=== PATIENT | female | born 1930 | race Caucasian/White ===

== ENCOUNTER 2018-07-07 19:05 | Inpatient (IN) ==
[2018-07-07 20:54] LABS: BASO# 0.02 X1000 (0.0-0.2); BASO% 0.2 % (0.0-0.8); EOS# 0.15 X1000 (0.0-0.7); EOS% 1.7 % (0.0-10.0); HEMATOCRIT 21.1 % (37.0-47.0); HEMOGLOBIN 6.7 g/dL (12.0-16.0); IMM GRAN# 0.04 X1000 (0.0-0.04); IMM GRAN% 0.4 % (0.0-0.5); LYMPH% 16.6 % (20.5-51.1); MCH 31.5 PG (27-31); MCHC 31.8 g/dL (33-37); MCV 99.1 FL (81-99); MONO# 1.07 X1000 (0.11-0.59); MONO% 11.9 % (1.7-9.3); MPV 10.6 FL (7.4-10.4); NEUT# 6.23 X1000 (1.4-6.5); NEUT% 69.2 % (42.2-75.2); PLT 204 X1000 (130-400); RBC 2.13 XMIL (4.2-5.4); RDW 14.6 % (11.5-14.5); WBC 9.01 X1000 (4.8-10.8)
[2018-07-07 21:01] LABS: INR 3.79
[2018-07-07 21:02] LABS: PTT 49.9 Seconds (22.3-41.8)
[2018-07-07] MEDS ORDERED: SODIUM CHLORIDE 0.9% INJ ONE (21:16)
[2018-07-07] MEDS ORDERED: PROTONIX IV ONE (21:16)
[2018-07-07 21:21] LABS: ALB/GLOB RATIO 1.3; ALBUMIN 3.1 g/dL (3.5-5.0); CALCIUM 9.7 mg/dL (8.8-10.2); CREATININE 2.3 mg/dL (0.5-0.9); POTASSIUM 3.9 mmol/L (3.5-5.1); TOTAL BILIRUBIN 0.31 mg/dL (0.20-1.00); TOTAL PROTEIN 5.5 g/dL (6.3-8.3)
[2018-07-07] MEDS ORDERED: LASIX IV ONE (23:19)
[2018-07-07] MEDS ORDERED: ZOFRAN IV PRN (23:23)
[2018-07-07] MEDS ORDERED: PROTONIX 80 MG in NS 80 ML IV ONE (23:23)
[2018-07-07] MEDS ORDERED: OFIRMEV 1000 MG/ISOTONIC SOLN 1,000 MG/100 ML BOTTLE IV ONE (23:37)
[2018-07-07] MEDS ORDERED: NS 250 ML ONE (23:46)
[2018-07-08] MEDS: DUONEB (A & A) INH SCH ×7 (01:08→23:35)
--- NOTE | 2018-07-08 01:47 | HISTORY AND PHYSICAL ---
PRIMARY CARE PHYSICIAN: Dr. Renner. CHIEF COMPLAINT: Dark blood in stools. HISTORY OF PRESENTING ILLNESS: An 87-year-old female with a history of coronary disease, [place], asthma, GERD, atrial flutter, breast cancer, who had presented to emergency department with several weeks of noticing blood in the stools. She states it was dark and somewhat tarry colored with some red blood tinged. She states that she was worried and had her Home Health nurse check her stools earlier today. There again it was noted that she had dark stools with some bright red blood that was around the stool. The patient was evaluated in the emergency department and she had a Hemoccult done that was positive and due to her presenting symptoms she will require admission for further management. At the time of my examination, patient had denied any headache, fever, chills, chest pain, shortness of breath, but complained of blood in stools and not feeling well. The patient is a poor historian and has some of the history is obtained from previous records and also the family members. PAST MEDICAL HISTORY: Coronary artery disease, SC, asthma, GERD, atrial flutter, breast cancer. PAST SURGICAL HISTORY: Pacemaker, right mastectomy, right knee replacement, mitral valve replacement, cholecystectomy, left ankle surgery, coronary bypass. ALLERGIES: Lortab. CURRENT MEDICATIONS: Lasix 40 mg p.o. daily, Coreg 6.25 mg p.o. b.i.d., L-thyroxine 125 mcg p.o. daily, omeprazole 20 mg p.o. daily, albuterol nebs p.r.n., Letrozole 2.5 mg p.o. daily, metolazone 10 mg p.o. daily, Cymbalta 60 mg p.o. daily, Multaq 400 mg p.o. b.i.d., Xarelto 15 mg p.o. daily. SOCIAL HISTORY: No history of smoking, alcohol or illicit drug use. She uses a walker for ambulation. FAMILY HISTORY: Positive for coronary disease in mother. REVIEW OF SYSTEMS: Fourteen point review of systems as listed in HPI. Other systems negative. PHYSICAL EXAMINATION: GENERAL: Cooperative, friendly female. She is resting comfortably now. VITAL SIGNS: Temperature 98.0 degrees, pulse 84, respirations 20, blood pressure 104/51. HEENT: Atraumatic, normocephalic. Extraocular movements intact. PERRLA. NECK: No masses. CHEST: Clear to auscultation. CARDIOVASCULAR: Irregular. ABDOMEN: Soft. Positive bowel sounds. EXTREMITIES: Trace edema. NEUROLOGIC: She is awake, alert, oriented x2. GENITOURINARY: No bladder distention. SKIN: Warm. LABORATORIES AND STUDIES: WBCs 9.01, hemoglobin 6.7, hematocrit 21.1, platelets 204,000. Sodium 140, potassium 3.9, chloride 99, CO2 22, BUN is 94, creatinine is 2.9, glucose is 126. ASSESSMENT: An 87-year-old elderly female with a history of coronary disease, myocardial infarction, atrial flutter, asthma, gastroesophageal reflux disease, who had presented to emergency department with several weeks history of noticing dark blood in her stools. She was evaluated in the emergency department and she had a Hemoccult done that was positive and due to presenting symptoms she will require admission for further management. 1. Suspected upper gastrointestinal bleed. 2. Atrial flutter, on anticoagulation. 3. Coronary artery disease. 4. Asthma. 5. Chronic kidney disease. PLAN: 1. We will admit patient to [facility]. 2. Keep patient NPO. Continue with Protonix drip and consult Gastroenterology. 3. We will hold her anticoagulation. 4. Continue with gentle hydration. 5. Continue with DuoNebs p.r.n. 6. Monitor her renal function. 7. We will put patient on DVT prophylaxis with SCDs. 8. We will continue to follow, and reassess and make further recommendation based on patient's clinical course. cc: Dante Tolliver MD
--- NOTE | 2018-07-08 06:27 | Diag Imaging Result Doc PS360 ---
CHEST-1 VIEW - 07/07/2018 INDICATION: sob COMPARISON: 03/24/2018 FINDINGS: Stable pacemaker and surgical changes to the heart. Cardiomegaly has improved since prior. There is some patchy linear atelectasis bilaterally. No dense consolidation or definite edema. No pneumothorax or pleural effusion. IMPRESSION: Cardiomegaly. Patchy linear atelectasis. Electronically signed by [place] 07/08/2018 6:25 AM
[2018-07-08 08:10] LABS: BASO# 0.02 X1000 (0.0-0.2); BASO% 0.2 % (0.0-0.8); EOS# 0.13 X1000 (0.0-0.7); EOS% 1.6 % (0.0-10.0); HEMATOCRIT 22.3 % (37.0-47.0); HEMOGLOBIN 7.2 g/dL (12.0-16.0); IMM GRAN# 0.02 X1000 (0.0-0.04); IMM GRAN% 0.2 % (0.0-0.5); LYMPH# 2.19 X1000 (1.2-3.4); LYMPH% 26.3 % (20.5-51.1); MCH 31.3 PG (27-31); MCHC 32.3 g/dL (33-37); MONO# 0.82 X1000 (0.11-0.59); MONO% 9.8 % (1.7-9.3); MPV 9.9 FL (7.4-10.4); NEUT# 5.16 X1000 (1.4-6.5); NEUT% 61.9 % (42.2-75.2); PLT 177 X1000 (130-400); RDW 14.5 % (11.5-14.5); WBC 8.34 X1000 (4.8-10.8)
[2018-07-08 08:17] LABS: CALCIUM 9.5 mg/dL (8.8-10.2); CREATININE 2.4 mg/dL (0.5-0.9); POTASSIUM 3.8 mmol/L (3.5-5.1)
[2018-07-08] MEDS ORDERED: SODIUM CHLORIDE 0.9% INJ SCH (10:15)
[2018-07-08] MEDS: PROTONIX IV SCH ×3 (10:23→23:02)
[2018-07-08] MEDS ORDERED: VITAMIN K 10 MG in NS 50 ML IV ONE (10:59)
[2018-07-08] MEDS ORDERED: NS 500 ML ONE (12:16)
[2018-07-08] MEDS ORDERED: SODIUM CHLORIDE 0.9% INJ PRN (13:47)
--- NOTE | 2018-07-08 13:55 | CARDIOLOGY CONSULTATION ---
DATE: 07/08/2018 REQUESTING PHYSICIAN: Hospitalist Service. REASON FOR CONSULTATION: Patient with coronary heart disease presenting with weakness, dyspnea, low hemoglobin, suspected to have GI bleeding. HISTORY: Mrs. Cardenas is an 84-year-old female who lives in independent living, was brought to the emergency room at about 10 p.m. last night because she was getting progressively tired, weak, not able to do much. She also noted some dark stools. Upon presentation, her hemoglobin was noted to be 6.7. They ordered 1 unit of blood, and after GI evaluation she is going to get a second unit of blood. She denies having any chest pain. She denies having any unusual dyspnea or syncope. No nausea or vomiting. PAST HISTORY: Positive for coronary heart disease. She has previously undergone coronary bypass surgery. She also has a history of sick sinus syndrome, heart block. She has asthma, acid reflux. She has had persistent atrial flutter, hypertension, hypothyroidism, and chronic kidney disease. She has a history of breast cancer. SURGICAL HISTORY: She had pacemaker implantation, right mastectomy, right knee replacement. She had mitral valve replacement redo in 2015 with a bioprosthetic valve for severe mitral regurgitation. Her bypasses were checked in 2014. Mammary artery graft to LAD was patent. Radial artery graft to diagonal was patent. Vein graft to marginal #1 was patent, and vein graft to right coronary artery was patent. Echocardiogram subsequently has been done more recently in the hospital on 03/23 that shows moderate to severe aortic stenosis with mild to moderate tricuspid regurgitation , normal function of the mitral valve. The patient has a history of also of basal cell carcinoma. SOCIAL HISTORY: She is . lives with her. She has children. She is not a smoker. MEDICATIONS: At the time of present admission include atorvastatin 10 mg at bedtime, calcium carbonate 1200 mg daily, carvedilol 6.25 twice a day, Multaq 400 twice a day, Cymbalta 60 mg in the morning, furosemide 40 mg a day, letrozole 2.5 in the morning, Synthroid 125 mcg daily, and Xarelto 15 mg at bedtime. ALLERGIES: She is allergic to hydrocodone. FAMILY HISTORY: Noncontributory. REVIEW OF SYSTEMS: She has become progressively more tired and weaker especially since her most recent admission in March of 2018. No other major changes in multiple review of systems. PHYSICAL EXAMINATION: Vital signs: Blood pressure 119/46, temperature 98.2, pulse 79, respirations 19. General: She is awake, alert, oriented, in no distress. HEENT: Unremarkable. She looks frail. Chest: Clear to auscultation and percussion. Cardiac: Heart sounds regular and rhythmic. Systolic murmur noted. Abdomen: Nontender, soft, no masses, no hepatomegaly. Extremities: Showed decreased pulses, no peripheral edema. Neurologic: Follows commands, moves four extremities. BLOOD WORK: Besides the hemoglobin, sodium is 143, potassium 3.8, BUN 100, creatinine 2.4, chloride 101, carbon dioxide 26. IMPRESSION: 1. Patient who presents with GI bleeding. This may be upper or lower. 2. Long-term anticoagulation with Xarelto. 3. Persistent atrial flutter. 4. Severe coronary heart disease, previous bypass surgery with patent grafts as of 2014. 5. Aortic stenosis, according to recent echo, of moderate to severe degree. 6. Status post mitral valve replacement with a bioprosthetic valve, redo valve surgery in 2016. No issue with this valve. 7. Chronic kidney disease, advanced, stage 4. RECOMMENDATION: From a cardiology viewpoint, I would suggest to put on hold the Xarelto probably indefinitely. We may have to think of a different way of preventing a stroke in her. I would suggest to give her some Vitamin K because her INR is elevated, also. I think they may proceed to do the endoscopies required in this case for definitive diagnosis with a reasonable risk for periprocedural cardiac events. We will be following her along. At this time, I am not going to change any of her medicines. cc: Luis Breaux MD [facility]
[2018-07-08] MEDS: CARAFATE LIQUID PO SCH ×2 (13:59→20:09)
--- NOTE | 2018-07-08 15:04 | PROGRESS NOTE ---
DATE: 07/08/2018 SUBJECTIVE: The patient has no new complaints at this moment. She is not complaining of chest pain or shortness of breath. She has mild abdominal discomfort. OBJECTIVE: Vital Signs: Temperature 98.6, pulse 77, respiratory rate 16, blood pressure 112/47, oxygen saturation 97% on 2 L nasal cannula. HEENT: Head normocephalic. No trauma. PERRLA. Neck: Supple. No JVD. No masses. Central trachea. Chest: Clear to auscultation. Decreased breath sounds at the bases with some crepitus. Cardiovascular: Irregularly irregular rate and rhythm. Abdomen: Soft. Positive bowel sounds. Mild tenderness to palpation at the level of the periumbilical area. Extremities: No edema. No clubbing. No cyanosis. Neurological: The patient is alert and oriented x3. No focal deficits. LABORATORY: WBC 8.3, hemoglobin 7.3, hematocrit 22.3, platelets 177,000. Sodium 143, potassium 3.8, chloride 101, bicarbonate 26, BUN 100, creatinine 2.4, glucose 100, calcium 9.5. ASSESSMENT AND PLAN: 1. Likely upper gastrointestinal bleed. This patient has been on anticoagulation which has been stopped. Will continue with Protonix. She will be scoped in the morning. For now, I will put this patient back on some of her home medications. I will monitor. Cardiology department has been consulted already. 2. Atrial flutter, on anticoagulation. Continue with same management. 3. Coronary artery disease. She is not complaining of chest pain or shortness of breath at this moment. I will put this patient back on carvedilol and Multaq. 4. Asthma, not in exacerbation. 5. Chronic kidney disease, stable. cc: Mir Degroot MD
--- NOTE | 2018-07-08 16:21 | GASTROENTEROLOGY CONSULTATION ---
DATE: 07/08/2018 REQUESTING PHYSICIAN: Dr. Howell PRIMARY CARE DOCTOR: Dr. Barb Renner in [place]. REASON FOR CONSULTATION: Dark stools. HISTORY OF PRESENT ILLNESS: Ms Cardenas is an 87-year-old female who presented on 07/07/2018 with symptoms of dark stools. According to the patient, the patient has been noticing dark stools for more than a week. She had asked her home health nurse to check her stools and, after confirming with her home health nurse, she was referred to ER for further evaluation. She had a positive Hemoccult in the ER. The patient denies any nausea, vomiting, vomiting blood. The patient says the stool is dark with some maroon old blood noted along at times. The patient has a history of pacemaker and atrial flutter, and she is on Xarelto. Her last Xarelto was yesterday at 5 p.m. Since being in the hospital, she had blood work which showed hemoglobin and hematocrit 6.7 and 21.1 and she has been given 1 unit of blood transfusion. PAST MEDICAL HISTORY: Coronary disease, [place], asthma, GERD, atrial flutter, breast cancer, insertion of pacemaker, right mastectomy, right knee replacement, mitral valve placement, cholecystectomy, right ankle surgery, coronary artery bypass. ALLERGIES: Lortab. MEDICATIONS AT HOME: Lasix, Coreg, levothyroxine, omeprazole, albuterol nebulizer, Letrozole, metolazone, Cymbalta, Multaq, Xarelto. SOCIAL HISTORY: No history of smoking, alcohol, illicit drugs. She uses a walker for ambulation. She has a very supportive son and at bedside. FAMILY HISTORY: Positive for coronary artery disease in mother. REVIEW OF SYSTEMS: Does complain of feeling weak and tired. Denies any nausea or vomiting. Denies any abdominal discomfort. Does have dark stool as described above. Does have history of arthritis. Denies any neurologic complaints. Denies any chest pain at the moment. MEDICATIONS IN THE HOSPITAL: albuterol/ipratropium, Zofran, Protonix b.i.d., vitamin K once now, and she is on a clear liquid diet. PHYSICAL EXAMINATION: Vital Signs: Temperature of 98.9 degrees, pulse rate of 73, respiratory rate 23, blood pressure 140/49, satting 94% on 2 L. General: Body weight of 164 pounds, BMI of 31 kg. She is moderately malnourished, lying in bed in no acute distress. HEENT: Pale conjunctivae. No icterus. Pupils equal, reactive to light. Neck: Supple. Abdomen: Soft, nontender, nondistended. No guarding or rebound. Extremities: No cyanosis, clubbing. Neurologic: She is alert, awake, oriented to time, place, and person. LABS: Hemoglobin and hematocrit is 7.2 and 22.3, white count of 8.3, platelet count of 177. INR 3.79. Sodium of 143, potassium 3.8, chloride 101, bicarbonate of 26, anion gap 16. BUN of 111, creatinine of 2.4, glucose of 109, calcium 9.5. AST 14, ALT 6, alkaline phosphatase 40, total protein is 5.5, albumin of 3.1. Stool occult blood was positive. IMAGING: X-ray of the chest done showed cardiomegaly and patchy linear atelectasis. IMPRESSION AND PLAN: 1. Melena. 2. Anemia. 3. Atrial flutter or anticoagulation with Xarelto. 4. Coagulopathy. 5. Coronary artery disease. 6. Asthma. 7. Chronic kidney disease. RECOMMENDATIONS: Will be given Protonix twice daily. We will start on Carafate 1 g 6 hours. She will be given 1 dose of vitamin K, which has already been given. Will type and cross, transfuse, keep hematocrit more than 25%. I have given order for 1 more unit of blood transfusion. We will keep her on clear liquid diet. We will schedule for EGD tomorrow with anesthesia. The risks, benefits, indications, alternatives were discussed with the patient and family and all questions answered. In the interim, her Xarelto will be withheld per the primary care team. The above plans discussed with the patient and family and all questions answered. Please call us with any further questions. cc: MD Dr. Barb Fontaine, [place], [place]
--- NOTE | 2018-07-08 19:31 | PROVIDER DOCUMENTATION ---
This chart was entered by Surendra Painter Scribe, acting as scribe for Sasha Cage MD. HPI-Abdominal Pain/GI Problem - General Chief Complaint: Rectal Bleeding Stated Complaint: RECTAL BLEEDING Time Seen by Provider: 07/07/18 20:05 Source: patient Allergies/Adverse Reactions: Patient Allergies Allergy/AdvReac Type Severity Reaction Status Date / Time hydrocodone [From Lortab] AdvReac NAUSEA Verified 03/18/18 13:13 Home Medications: Home Medication List Medication Instructions Recorded Confirmed Last Taken Type ATORVAstatin [Lipitor] 10 mg PO QHS 03/18/18 07/08/18 07/06/18 21:00 History Carvedilol [Coreg] 6.25 mg PO BID 03/18/18 07/08/18 07/07/18 09:00 History Letrozole 2.5 mg PO QAM 03/18/18 07/08/18 07/07/18 09:00 History Rivaroxaban [Xarelto] 15 mg PO QHS 03/18/18 07/08/18 07/06/18 21:00 History Calcium Carbonate [Calcium] 1,200 mg PO DAILY 03/20/18 07/08/18 07/07/18 09:00 History Dronedarone HCl [Multaq] 400 mg PO BID 03/20/18 07/08/18 07/07/18 09:00 History Duloxetine HCl 60 mg PO QAM #30 capsule. 03/26/18 07/08/18 07/07/18 09:00 Rx Furosemide [Lasix] 40 mg PO DAILY #90 tab 03/26/18 07/08/18 07/07/18 09:00 Rx Levothyroxine [Synthroid] 125 microgm PO DAILY@0700 #60 tab 03/26/18 07/08/18 09:00 Rx - History of Present Illness-ABD Nature of Presenting Problems: Pt is a 87 y/o F presents to the ED with a possible Lower GI bleed. Pt reports she lives in the [place] with a COMBINATION WORKER came by there and did a stool sample. The son got a call around 5:30 pm saying to take pt to the ED for evaluation for possible GI bleed. Pt reports being weak and says she has notice some black stool. She denies abdominal pain. Quality of Pain: reports: none Onset/Duration: reports: unsure Timing: reports: still present Activities at Onset: reports: none Exposure to sick contacts?: No Modifying Factors: improves with: nothing Associated Symptoms: reports: weakness. denies: back/neck pain, fever/chills, genitourinary problems, nausea, vomiting, trouble walking Dark Stools Present?: reports: black Review of Systems - Adult - REVIEW OF SYSTEMS - ADULT Constitutional: reports: other (weakness). denies: chills, fever Eyes: reports: no symptoms reported Ears, Nose, Mouth & Throat: reports: no symptoms reported Cardiovascular: reports: no symptoms reported Respiratory: denies: cough, shortness of breath, wheezing Gastrointestinal: denies: abdominal pain, nausea, rectal bleeding (black stool) , vomiting Genitourinary: denies: dysuria, discharge Musculoskeletal: denies: back pain, neck pain Integumentary: reports: no symptoms reported Neurological: reports: no symptoms reported Psychiatric: reports: no symptoms reported Endocrine: reports: no symptoms reported Hematologic/Lymphatic: reports: no symptoms reported Allergic/Immunologic: reports: no symptoms reported All Other Systems: Reviewed and Negative Past History - Adult - PAST MEDICAL HISTORY-ADULT Review of Records: reports: Old Records Reviewed, Nursing Assessment Review, Medications Reviewed Cardiovascular: reports: CAD, pacemaker Endocrine/Immune: reports: Diabetes Other Conditions: 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 - PRIOR SURGERIES/PROCEDURES Surgical/Procedure History: reports: reviewed, not pertinent - IMMUNIZATION STATUS Childhood Immunizations: See Nurse Assessment Flu Vaccine: See Nurse Assessment - FAMILY HISTORY Family History: reviewed, not pertinent - SOCIAL HISTORY Smoking: non-smoker Living Situation: family Physical Exam-General - PHYSICAL EXAM-ADULT Initial Vital Signs Reviewed: Yes - CONSTITUTIONAL General Appearance: appears well, alert, no apparent distress - EYES Eyes: PERRL/EOMI, pink conjunctivae - HEAD, EARS, NOSE, MOUTH & THROAT HENMT: moist mucous membranes, normal ENT inspection, TMs normal, pharynx normal - NECK Neck: non-tender, full range of motion, supple, normal inspection - RESPIRATORY Respiratory: lungs clear, normal breath sounds, no pleuratic chest pain, no respiratory distress, no accessory muscle use - CARDIOVASCULAR Cardiovascular: normal peripheral pulses, regular rate, rhythm - GASTROINTESTINAL (ABDOMEN) Abdominal Exam: normal bowel sounds, non tender, soft - GENITOURINARY Rectal Exam: normal exam, normal rectal tone, black stool - MUSCULOSKELETAL Back Exam: normal inspection, no CVA tenderness, no vertebral tenderness Extremity: normal range of motion, non-tender, normal gait, normal inspection - SKIN Integumentary: normal color, normal turgor, warm/dry - NEUROLOGIC Neurologic: grossly normal, no motor/sensory deficits - PSYCHIATRIC Psych/Mental Status: normal mood/affect, normal thought content, normal thought process, oriented x 3 Progress - PLAN OF CARE/RESULTS Progress/Plan/Lab Results: Vital Signs - 8 hr 07/07/18 19:33 Temperature 98.0 F Pulse Rate 84 Respiratory Rate 20 Blood Pressure 104/51 O2 Sat by Pulse Oximetry 97 Orders Category Date Time Status CBC WITH ELECTRONIC DIFF [HEME] Stat Lab 07/07/18 19:36 Uncollected COMPREHENSIVE METABOLIC PANEL [CHEM] Stat Lab 07/07/18 19:36 Uncollected PROTIME WITH INR [COAG] Stat Lab 07/07/18 19:36 Uncollected PTT [COAG] Stat Lab 07/07/18 19:36 Uncollected TYPE & SCREEN [BBK] Stat Lab 07/07/18 19:36 Uncollected GI Bleed (possible) Stat Oth 07/07/18 19:36 Ordered Result Diagrams: 07/08/18 07:44 07/08/18 07:44 - CONSULTS/PCP/HOSPITALIST Notification #1 *Consult/PCP/Hospitalist*: Hospitalist- Dr Tolliver Time Discussed: 21:16 Reason/Comments: admission Consult Disposition: Will see in ED, Admit (accepts) Departure - Departure Date of Disposition Decision: 07/07/18 Time of Disposition Decision: 21:17 DIAGNOSIS: GI bleed Disposition: ADMITTED INPATIENT 09 Certified Medical Emergency: Emergent Condition: Stable - Critical Care Note This patient required my direct & personal management of CC.: No Attestation - Physician/ LACIE Attestation Patient care was provided by Advanced Practice Provider:: No The physician spent face to face time with patient:: Yes Advanced Practice Provider documentation review:: Supervising physician onsite and consulted in the evaluation and care of this patient. The physician did have a face to face encounter with the patient. This chart was documented by the jerardo scribe, (Surendra Painter Scribe) and accurately reflects the services I performed and decisions made by me, Niles,Sasha Huu, MD, as attested by the provider's signature.
[2018-07-08] MEDS: COREG PO SCH (20:09)
[2018-07-08] MEDS: MULTAQ PO SCH (20:09)
[2018-07-09] MEDS ORDERED: TYLENOL WITH CODEINE #3 PO ONE (01:45)
[2018-07-09] MEDS: CARAFATE LIQUID PO SCH ×4 (02:01→20:53)
[2018-07-09] MEDS: DUONEB (A & A) INH SCH ×6 (03:25→23:35)
[2018-07-09 05:53] LABS: PTT 32.5 Seconds (22.3-41.8)
[2018-07-09] MEDS: SYNTHROID IV SCH (05:59)
[2018-07-09 06:03] LABS: BASO# 0.01 X1000 (0.0-0.2); BASO% 0.1 % (0.0-0.8); EOS# 0.24 X1000 (0.0-0.7); EOS% 2.6 % (0.0-10.0); HEMATOCRIT 26.1 % (37.0-47.0); HEMOGLOBIN 8.5 g/dL (12.0-16.0); IMM GRAN# 0.02 X1000 (0.0-0.04); IMM GRAN% 0.2 % (0.0-0.5); INR 1.63; LYMPH# 1.74 X1000 (1.2-3.4); LYMPH% 18.6 % (20.5-51.1); MCHC 32.6 g/dL (33-37); MCV 95.3 FL (81-99); MONO# 1.19 X1000 (0.11-0.59); MONO% 12.7 % (1.7-9.3); MPV 10.3 FL (7.4-10.4); NEUT# 6.18 X1000 (1.4-6.5); NEUT% 65.8 % (42.2-75.2); PLT 180 X1000 (130-400); PROTIME 20.5 Seconds (11.0-16.0); RBC 2.74 XMIL (4.2-5.4); RDW 16.2 % (11.5-14.5); WBC 9.38 X1000 (4.8-10.8)
[2018-07-09] MEDS ORDERED: DIPRIVAN 1% ONE ×2 (06:44→11:18)
[2018-07-09] MEDS ORDERED: XYLOCAINE-MPF 2% ONE (06:45)
[2018-07-09 06:59] LABS: ALB/GLOB RATIO 1.2; ALBUMIN 3.1 g/dL (3.5-5.0); CALCIUM 9.4 mg/dL (8.8-10.2); POTASSIUM 3.8 mmol/L (3.5-5.1); TOTAL BILIRUBIN 0.45 mg/dL (0.20-1.00); TOTAL PROTEIN 5.6 g/dL (6.3-8.3)
[2018-07-09] MEDS: MULTAQ PO SCH ×2 (09:08→20:53)
[2018-07-09] MEDS: PROTONIX IV SCH ×3 (09:08→20:53)
[2018-07-09] MEDS: COREG PO SCH ×2 (09:08→20:53)
--- NOTE | 2018-07-09 11:06 | PROGRESS NOTE ---
DATE: 07/09/2018 SUBJECTIVE: This patient has no new complaints at this moment. She is scheduled for an endoscopy today. No acute events overnight. OBJECTIVE: Vital Signs: Temperature 97.3 degrees, pulse 78, respiratory rate 18, blood pressure 114/50, oxygen saturation 95% on room air. HEENT: Head normocephalic. No trauma. PERRLA. Neck: Supple. No JVD. No masses. Central trachea. Chest: Clear to auscultation. Decreased breath sounds at the bases with some crepitus. Cardiovascular: Irregular rhythm. Abdomen: Soft. Positive bowel sounds. Mild tenderness to palpation at the level of the periumbilical area. Extremities: No edema. No clubbing. No cyanosis. Neurological examination: The patient is alert and oriented x3. No focal deficits. LABORATORY: WBC 9.3, hemoglobin 8.5, hematocrit 26.1, platelets 180. Sodium 143, potassium 3.8, chloride 102, bicarbonate 24. BUN 93, creatinine 2, glucose 98, calcium 9.4. AST 17, ALT 6, alkaline phosphatase 40, albumin 3.1. ASSESSMENT AND PLAN: 1. Likely upper gastrointestinal bleed. This patient has been on anticoagulation which has been stopped. We will continue with Protonix. She will be scoped today. For now, we will continue with the same management. 2. Atrial flutter, on anticoagulation that has been stopped. Continue with the same management. Cardiology Department already evaluated this patient. 3. Coronary artery disease. She is not complaining of chest pain or shortness of breath at this moment. She has been placed back on her medications. 4. Asthma not in exacerbation. 5. Chronic kidney disease, stable. cc: Mir Degroot MD
--- NOTE | 2018-07-09 12:31 | OPERATIVE NOTE ---
PROCEDURE DATE: 07/09/2018 PROCEDURE: Esophagogastroduodenoscopy PREOPERATIVE DIAGNOSIS: Melena and anemia. POSTOPERATIVE DIAGNOSIS: Moderate sized hiatal hernia. No signs of any bleeding. DESCRIPTION OF PROCEDURE: After informed consent and adequate intravenous sedation, the scope introduced through the esophagus which was normal. The patient had 4 to 5 cm hiatal hernia. However I did not see any Meera-Moya tear or any active bleeding. The rest of the stomach and duodenum were normal. No AVMs seen. The scope was withdrawn. The patient tolerated the procedure well without any immediate complications. While hiatal hernias of this size are associated with chronic anemia, I will check with the patient and see when she had the colonoscopy. We may need to do that if she has not had one recently. cc: Julio Eubanks MD
[2018-07-09 15:38] LABS: HEMATOCRIT 26.7 % (37.0-47.0); HEMOGLOBIN 8.4 g/dL (12.0-16.0)
[2018-07-09 21:18] LABS: HEMATOCRIT 26.9 % (37.0-47.0); HEMOGLOBIN 8.4 g/dL (12.0-16.0)
[2018-07-09] MEDS ORDERED: CALMOSEPTINE OINTMENT TOP PRN (22:02)
[2018-07-10] MEDS: CARAFATE LIQUID PO SCH ×2 (02:28→08:21)
[2018-07-10] MEDS: DUONEB (A & A) INH SCH ×2 (03:35→08:14)
[2018-07-10 05:02] LABS: BASO# 0.01 X1000 (0.0-0.2); BASO% 0.1 % (0.0-0.8); EOS# 0.43 X1000 (0.0-0.7); EOS% 5.4 % (0.0-10.0); HEMATOCRIT 26.7 % (37.0-47.0); HEMOGLOBIN 8.3 g/dL (12.0-16.0); LYMPH# 1.35 X1000 (1.2-3.4); LYMPH% 16.9 % (20.5-51.1); MCH 30.6 PG (27-31); MCHC 31.1 g/dL (33-37); MCV 98.5 FL (81-99); MONO# 1.03 X1000 (0.11-0.59); MONO% 12.9 % (1.7-9.3); MPV 10.4 FL (7.4-10.4); NEUT# 5.19 X1000 (1.4-6.5); NEUT% 64.7 % (42.2-75.2); PLT 176 X1000 (130-400); RBC 2.71 XMIL (4.2-5.4); RDW 16.3 % (11.5-14.5); WBC 8.01 X1000 (4.8-10.8)
[2018-07-10 05:44] LABS: CALCIUM 9.3 mg/dL (8.8-10.2); CREATININE 1.9 mg/dL (0.5-0.9); POTASSIUM 3.6 mmol/L (3.5-5.1)
[2018-07-10] MEDS: SYNTHROID IV SCH (06:01)
[2018-07-10 07:10] VITALS: BP 104/48
[2018-07-10] MEDS: COREG PO SCH (08:21)
[2018-07-10] MEDS: MULTAQ PO SCH (08:21)
[2018-07-10] MEDS: PROTONIX IV SCH (08:21)
--- NOTE | 2018-07-11 06:30 | DISCHARGE SUMMARY ---
ADMISSION DATE: 07/07/2018 DISCHARGE DATE: 07/10/2018 DISCHARGE DIAGNOSES: 1. Upper GI bleed status post upper endoscopy. 2. Atrial flutter on anticoagulation that has been stopped. 3. History of coronary artery disease. 4. Asthma not in exacerbation. 5. CKD. CONSULTANTS: 1. Cardiology Department Dr. Breaux. 2. Gastroenterology Department Dr. Eubanks. PROCEDURES PERFORMED: 1. Chest x-ray dated 07/07/2018 showed cardiomegaly and patchy linear atelectasis. 2. EGD dated 07/09/2018. Diagnosis: Moderate sized hiatal hernia. No signs of any bleeding. HOSPITAL COURSE: An 87-year-old female with a past medical history of coronary artery disease, HI, asthma, GERD, atrial flutter, breast cancer who presented to the emergency department with the chief complaint of dark tarry colored stools. She was admitted on 07/07/2018. As per the patient, she spent several weeks noticing blood in the stools. She states that it was dark and somewhat tarry colored with some red blood tinged. She states that she was worried, and her home health nurse check her stools earlier the day of admission. The patient was evaluated in the emergency department. She had a Hemoccult that was positive. Because of the presenting symptoms, she was admitted for further management. At that time, she denied headache, fever, chills, chest pain, or shortness of breath. She is actually a poor historian and has some of the story has been obtained from previous records and also family members. She was admitted to the [facility] unit. We stopped the anticoagulation, and we asked cardiology department to evaluate this patient who suggested to put on hold the Xarelto probably indefinitely. We may have to think of a different way of preventing a stroke in her. Also, they gave her some vitamin K because the INR was a little bit elevated. They did not change the rest of her medications. Gastroenterology Department was consulted, and they decided to go ahead and scope this patient. The ED did not show any active bleeding, but showed a moderate sized hiatal hernia. We monitored the hemoglobin, and has been stable for the past couple of days. At the beginning though, the hemoglobin was low at 6.7 and she received 2 units of PRBC's. Today, this patient is feeling fine. She is tolerating p.o. She is ambulating. She is not having nausea or vomiting. Hemoglobin is stable. This is why we have decided to discharge this patient with an active follow up by Gastroenterology Department in 1 to 2 months because this patient probably needs to get a colonoscopy. Also, she will follow up with Dr. Breaux hopefully in 1 or 2 weeks to take care of the anticoagulation and/or another way to try to prevent strokes. She will not be discharged with blood thinners seen she has been having black stools/melena. I also recommended followup by her primary care doctor in 1 week. PHYSICAL EXAMINATION: Vital Signs: Temperature 98.5 degrees, pulse 56, respiratory rate 14, blood pressure 104/48, oxygen saturation 94. HEENT: Head normocephalic. No trauma. PERRLA. Neck: Supple. No JVD. No masses. Central trachea. Chest: Clear to auscultation. No wheezing. No rales. Abdomen: Soft, nontender, and nondistended. No hepatosplenomegaly. Extremities: No edema. No clubbing. No cyanosis. She is complaining of left foot pain which is chronic and has been seen by Orthopedic Surgery Department as an outpatient. I do not see any source of infection. LABORATORY: WBC 8. Hemoglobin 8.3, hematocrit 26.7 and platelets 176,000. Sodium 141, potassium 3.6, chloride 100, bicarbonate 24, BUN 74, creatinine 1.9 and glucose 97, and calcium 9.3. DISCHARGE MEDICATIONS: 1. Synthroid 125 mcg p.o. daily. 2. Letrozole 2.5 mg p.o. every morning. 3. Furosemide 40 mg p.o. daily. 4. Fluoxetine 60 mg p.o. every morning. 5. Multaq 400 mg p.o. b.i.d. 6. Carvedilol 6.25 mg p.o. b.i.d. 7. Calcium carbonate 1200 mg p.o. daily. 8. Atorvastatin 10 mg p.o. at bedtime. 9. Pantoprazole 40 mg p.o. daily. TIME SPENT: Time discharging this patient 35 minutes. cc: Mir Degroot MD
== END 2018-07-10 11:50 | disposition home or self-care (01) | DRG 813 ==
LOC: ED 19:05 → EDIPHOLD 23:08 → SUATTDRO 23:08 → 3S 07-08 11:02
PROVIDERS: ATTEND Internal Medicine
CPT/HCPCS: 36430; 71010; 71045; 80048; 80053; 82270; 82550; 83880; 84484; 85014; 85018; 85025; 85610; 85730; 86850; 86900; 86901; 86920; 94640; 94761; 96365; 96375; 96376; 99285; A9270; C9113; J0131; J1940; J3430; J7040; J7050; P9016; S0164

== ENCOUNTER 2018-07-25 07:32 | Inpatient (IN) ==
--- NOTE | 2018-07-25 07:37 | PROVIDER DOCUMENTATION ---
[id number] - General Chief Complaint: Fall Stated Complaint: fall Time Seen by Provider: 07/25/18 07:36 Source: patient, EMS, EMS notes reviewed Allergies/Adverse Reactions: Patient Allergies Allergy/AdvReac Type Severity Reaction Status Date / Time hydrocodone [From Lortab] AdvReac NAUSEA Verified 07/25/18 09:15 Home Medications: Home Medication List Medication Instructions Recorded Confirmed Last Taken Type ATORVAstatin [Lipitor] 10 mg PO QHS 03/18/18 07/25/18 07/24/18 History Carvedilol [Coreg] 6.25 mg PO BID 03/18/18 07/25/18 07/24/18 History Letrozole 2.5 mg PO QAM 03/18/18 07/25/18 07/24/18 History Calcium Carbonate [Calcium] 1,200 mg PO DAILY 03/20/18 07/25/18 07/24/18 History Duloxetine HCl 60 mg PO QAM #30 capsule. 03/26/18 07/25/18 07/24/18 Rx Furosemide [Lasix] 40 mg PO DAILY #90 tab 03/26/18 07/25/18 07/24/18 Rx Levothyroxine [Synthroid] 125 microgm PO DAILY@0700 #60 tab 03/26/18 07/25/18 Rx Pantoprazole [Protonix] 40 mg PO DAILY@0700 #60 tab 07/10/18 07/25/18 07/24/18 Rx Amiodarone [Cordarone] 1 tab PO DAILY 07/22/18 07/25/18 07/24/18 History Aspirin [Aspir-Low] 1 tab PO DAILY 07/22/18 07/25/18 07/24/18 History Ranolazine [Ranexa] 1 tab PO BID 07/22/18 07/25/18 07/24/18 History - History of Present Illness -Trauma Nature of Presenting Problem: Patient with 3rd visit this week for falls and weakness, had an admission here end of June for GI bleed, and an admission at week and a half ago for NSTEMI. Patient also has history of CHF. Today, she got up to go to the bathroom, fell back feldman and hit head in the same are she had a lac repair on , causing slight dehiscence of scalp wound. States she is still having left arm paresthesias, similar to when she had her WI. No new symptoms. No LOC today. No fever, chills, n/v, sob. Location of Pain/Injury: reports: head Head Injury Location: reports: occipital Pain Radiation: reports: no radiation Quality of Pain: reports: dull Severity: reports: mild Onset/Duration: reports: 1 hour ago Timing: reports: still present, constant Method of Injury: reports: fall Loss of Consciousness: no loss of consciousness Remembers:: reports: injury Modifying Factors: improves with: nothing. worse with: palpation Injury Associated Symptoms: reports: weakness, trouble walking Locality of [place]: Home Similar Symptoms Previously?: Yes (3rd visit this week to ED for same) Recently seen or treated by another doctor?: Yes (as above in HPI) Review of Systems - Adult - REVIEW OF SYSTEMS - ADULT Constitutional: reports: no symptoms reported Eyes: reports: no symptoms reported Ears, Nose, Mouth & Throat: reports: no symptoms reported Cardiovascular: reports: see HPI, chest pain, edema, syncope. denies: heart murmur, irregular heart rate, orthopnea, palpitations, poor circulation, PND Respiratory: reports: see HPI, dyspnea on exertion, shortness of breath Gastrointestinal: reports: no symptoms reported Genitourinary: reports: no symptoms reported Musculoskeletal: reports: no symptoms reported Integumentary: reports: no symptoms reported Neurological: reports: no symptoms reported Psychiatric: reports: no symptoms reported Endocrine: reports: no symptoms reported Hematologic/Lymphatic: reports: no symptoms reported Allergic/Immunologic: reports: no symptoms reported All Other Systems: Reviewed and Negative Past History - Adult - PAST MEDICAL HISTORY-ADULT Review of Records: reports: Old Records Reviewed (3 ED visits, and hospital admission, labs/EKGs), Nursing Assessment Review, Medications Reviewed, Social history reviewed & non-contributory. Major Childhood Illnesses: reports: denies history Cardiovascular: reports: A-Fib, CAD, CHF, HTN, pacemaker Respiratory: reports: asthma Gastrointestinal: reports: denies history Obstetrical/Gynecological: reports: denies history Genitourinary: reports: kidney disease Musculoskeletal: reports: denies history Neurological: reports: denies history Endocrine/Immune: reports: Diabetes, thyroid disorder Other Conditions: 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 - PRIOR SURGERIES/PROCEDURES Surgical/Procedure History: reports: reviewed, not pertinent, pacemaker, joint replacement - IMMUNIZATION STATUS Childhood Immunizations: See Nurse Assessment Flu Vaccine: See Nurse Assessment - FAMILY HISTORY Family History: reviewed, not pertinent - SOCIAL HISTORY Smoking: non-smoker Substance Use: none/never Alcohol Use Frequency: never Living Situation: family Physical Exam-Injury Related - Physical Exam-Injury Related Initial Vital Signs Reviewed: Yes (hypotensive initially, otherwise stable) General Appearance: appears well, alert, no apparent distress, obese Immobilization?: negative: backboard, C-collar Eyes: PERRL/EOMI, pink conjunctivae Head, Ears, Nose, Mouth & Throat: moist mucous membranes, normal ENT inspection , pharynx normal, other (hematoma right occiptal region, with recently stapled laceration and small area of dehiscence with minimal clotted blood) Progress - PLAN OF CARE/RESULTS Progress/Plan/Lab Results: Vital Signs - 8 hr 07/25/18 07:37 07/25/18 07:55 07/25/18 07:56 Temperature 98.3 F Pulse Rate 83 71 47 L Respiratory Rate 18 23 23 Blood Pressure 84/65 124/56 O2 Sat by Pulse Oximetry 97 07/25/18 08:00 07/25/18 08:29 07/25/18 08:30 Temperature Pulse Rate 70 70 Respiratory Rate 28 H 24 18 Blood Pressure O2 Sat by Pulse Oximetry 07/25/18 08:40 07/25/18 08:50 07/25/18 09:00 Temperature Pulse Rate 76 68 73 Respiratory Rate 22 18 24 Blood Pressure O2 Sat by Pulse Oximetry 07/25/18 09:10 07/25/18 09:12 Temperature Pulse Rate 70 70 Respiratory Rate 18 24 Blood Pressure 134/46 O2 Sat by Pulse Oximetry 07/25/18 08:30 Influenza Screen - Final Nasopharyngeal Laboratory Results - last 24 hr 07/25/18 07/25/18 07/25/18 08:00 08:00 08:00 WBC 9.31 RBC 3.03 L Hgb 9.3 L Hct 30.5 L MCV 100.7 H MCH 30.7 MCHC 30.5 L RDW Std Deviation 16.1 H Plt Count 243 MPV 9.6 Immature Gran % (Auto) 0.2 Neut % (Auto) 74.7 Lymph % (Auto) 13.3 L [place] % (Auto) 9.7 H Eos % (Auto) 2.0 Baso % (Auto) 0.1 Immature Gran # (Auto) 0.02 Neut # (Auto) 6.95 H Lymph # (Auto) 1.24 [place] # (Auto) 0.90 H Eos # (Auto) 0.19 Baso # (Auto) 0.01 PT INR PTT (Actin FS) Sodium 139 Potassium 4.6 Chloride 98 Carbon Dioxide 28 Anion Gap 13 BUN 60 H Creatinine 2.5 H Estimated GFR/1.73 m2 18 BUN/Creatinine Ratio 24 Glucose 107 H Calculated Osmolality 295 Calcium 10.2 Phosphorus 4.9 H Magnesium 2.0 Total Bilirubin 0.48 AST 16 ALT 14 Alkaline Phosphatase 78 Creatine Kinase 29 Troponin T [id number]-B-Tsfyvrycbkx Pept 04922 H Total Protein 5.9 L Albumin 3.6 Globulin 2.3 Albumin/Globulin Ratio 1.6 Plasma Lactate Urine Source 07/25/18 07/25/18 07/25/18 08:00 08:00 08:35 WBC RBC Hgb Hct MCV MCH MCHC RDW Std Deviation Plt Count MPV Immature Gran % (Auto) Neut % (Auto) Lymph % (Auto) [place] % (Auto) Eos % (Auto) Baso % (Auto) Immature Gran # (Auto) Neut # (Auto) Lymph # (Auto) [place] # (Auto) Eos # (Auto) Baso # (Auto) PT 18.5 H D INR 1.43 D PTT (Actin FS) 35.0 Sodium Potassium Chloride Carbon Dioxide Anion Gap BUN Creatinine Estimated GFR/1.73 m2 BUN/Creatinine Ratio Glucose Calculated Osmolality Calcium Phosphorus Magnesium Total Bilirubin AST ALT Alkaline Phosphatase Creatine Kinase Troponin T 0.791 H* Uge-O-Meoaqgoumha Pept Total Protein Albumin Globulin Albumin/Globulin Ratio Plasma Lactate 1.7 Urine Source 07/25/18 09:06 WBC RBC Hgb Hct MCV MCH MCHC RDW Std Deviation Plt Count MPV Immature Gran % (Auto) Neut % (Auto) Lymph % (Auto) [place] % (Auto) Eos % (Auto) Baso % (Auto) Immature Gran # (Auto) Neut # (Auto) Lymph # (Auto) [place] # (Auto) Eos # (Auto) Baso # (Auto) PT INR PTT (Actin FS) Sodium Potassium Chloride Carbon Dioxide Anion Gap BUN Creatinine Estimated GFR/1.73 m2 BUN/Creatinine Ratio Glucose Calculated Osmolality Calcium Phosphorus Magnesium Total Bilirubin AST ALT Alkaline Phosphatase Creatine Kinase Troponin T Dtj-H-Snixzxoljbi Pept Total Protein Albumin Globulin Albumin/Globulin Ratio Plasma Lactate Urine Source CLEAN CATCH Orders Category Date Time Status Finger Stick Blood Sugar (ED) DIRECTED Care 07/25/18 07:55 Active Vargas Cath Insertion ORDERED Care 07/25/18 09:17 Active Nursing- Obtain EKG once Care 07/25/18 07:55 Active Saline Loc NOW Care 07/25/18 07:55 Active Wound Care DIRECTED Care 07/25/18 07:57 Active CHEST-PORTABLE [RAD] Stat Exams 07/25/18 07:[address] HEAD/C-SPINE W/O CONTRAST [CT] Stat Exams 07/25/18 07:56 Completed CBC WITH ELECTRONIC DIFF [HEME] Stat Lab 07/25/18 08:00 Completed CK PROFILE [SP CHEM] Stat Lab 07/25/18 08:00 Completed COMPREHENSIVE METABOLIC PANEL [CHEM] Stat Lab 07/25/18 08:00 Completed INFLUENZA SCREEN A/B Stat Lab 07/25/18 08:30 Received LACTATE, PLASMA [CHEM] Stat Lab 07/25/18 08:35 Completed MAGNESIUM [CHEM] Stat Lab 07/25/18 08:00 Completed PRO B-NATRIURETIC PEPTIDE Stat Lab 07/25/18 08:00 Completed PROTIME WITH INR [COAG] Stat Lab 07/25/18 08:00 Completed PTT [COAG] Stat Lab 07/25/18 08:00 Completed TROPONIN T Stat Lab 07/25/18 08:00 Completed URINALYSIS W/POSS RFLX CULT [URINALYSIS] Stat Lab 07/25/18 09:06 Results phos [PHOSPHORUS] [CHEM] Stat Lab 07/25/18 08:00 Completed 0.9% Sodium Chloride Inj [Ns] 500 ml Med 07/25/18 07:56 Discontinued IV 999 mls/hr Acetaminophen [Tylenol] Med 07/25/18 07:57 Discontinued 650 mg PO NOW ONE Aspirin Med 07/25/18 09:30 Discontinued 325 mg PO NOW ONE Furosemide [Lasix] Med 07/25/18 09:16 Discontinued 60 mg IV NOW ONE Nitroglycerin Med 07/25/18 09:16 Discontinued 0.5 inch TOP NOW ONE EKG [EKG] Stat Ther 07/25/18 07:55 Ordered Result Diagrams: 07/25/18 08:00 07/25/18 08:00 - REASSESSMENT Reassessment #1 Time Reassessed: 09:43 Status: improving (BP improved after small fluid bolus. Given tylenol for pain , wound cleaned and dressed. Given ASA, NTP and Lasix for chf) - EKG 1 Time of EKG reading by physician:: 09:00 EKG Read and Signed by:: Musa Tlelo EKG Interpretation (*Must complete 3 of following elements*): Abnormal Rate: 69 Rhythm: Atrial paced rhythm [place]: right QRS: other (wide complex, paced) MI Interval: normal ST Wave: non-specific ST changes Prior EKG Comparison: unchanged from prior (07/22/18) - XRAY 1 XRAY Study: Chest Impression: Abnormal XRAY Interpretation: Read by me at 0940: CM, pacemaker, sternotomy, mild CHF - CT/MRI 1 CT Study: Head Impression: Abnormal, See EMR Report (EXAM: CT HEAD/C-SPINE W/O CONTRAST - 2018 HISTORY: head injury/pain TECHNIQUE: CT head and cervical spine without contrast COMPARISON: 07/23/2018 CT head, 07/22/2018 CT cervical spine FINDINGS: CT head: There are atrophic changes similar to prior. There are chronic ischemic changes similar to prior. There is subcutaneous soft tissue swelling with subcutaneous air/laceration right at the right posterior scalp. There is no evidence of skull fracture. There is no evidence of intracranial hemorrhage, mass effect, or midline shift. There is mild paranasal sinus disease noted. CT cervical spine: There is substantial multilevel degenerative disease similar to prior. There is no acute fracture, subluxation, or precervical soft tissue swelling identified. There are atherosclerotic calcifications noted of the bilateral carotid bulb regions. IMPRESSION: CT head: Atrophic changes and chronic ischemic changes, similar to prior. Subcutaneous soft tissue swelling at right posterior scalp. No evidence of intracranial injury. CT cervical spine: Multilevel degenerative disease, similar to prior. No evidence of acute cervical spine injury. This exam was performed using automated exposure control, adjustment of mA or kV according to patient size, and/or use of iterative reconstruction technique. Electronically signed by Gerson Ivan 07/25/2018 8:53 AM 07/25/18 0853 Interpreting Physician: Gerson Ivan MD Dictated Date/Time: 07/25 0821 cc: Musa Tello MD; Barb Sauer MD) Comparison with other Films: no changes - CONSULTS/PCP/HOSPITALIST Notification #1 *Consult/PCP/Hospitalist*: NOLBERTO Brothers Time Discussed: :44 (Admit to [facility]) Consult Disposition: Will see in ED Departure - Departure Date of Disposition Decision: 07/25/18 Time of Disposition Decision: 09:44 DIAGNOSIS: Hypotension Qualifiers: Hypotension type: orthostatic hypotension Qualified Code(s): I95.1 - Orthostatic hypotension Fall Qualifiers: Encounter type: initial encounter Qualified Code(s): W19.XXXA - Unspecified fall, initial encounter Laceration of scalp without complication Qualifiers: Encounter type: initial encounter Qualified Code(s): S01.01XA - Laceration without foreign body of scalp, initial encounter Acute exacerbation of CHF (congestive heart failure) Qualifiers: Heart failure type: combined systolic and diastolic Qualified Code(s): I50.43 - Acute on chronic combined systolic (congestive) and diastolic (congestive) heart failure Disposition: ADMITTED INPATIENT 09 Certified Medical Emergency: Emergent Condition: Fair Referrals and Follow-Ups: Barb Sauer MD [Primary Care Provider] - - Critical Care Note This patient required my direct & personal management of CC.: Yes Total Time (mins): 38 Critical Care Statement: This patient required my direct personal management to treat or rule out processes, the absence of which, could potentiallly result in sudden, clinically significant life or limb threatening deterioration. Attestation - Physician/ LACIE Attestation Patient care was provided by Advanced Practice Provider:: No The physician spent face to face time with patient:: Yes Advanced Practice Provider documentation review:: Supervising physician onsite and consulted in the evaluation and care of this patient. The physician did have a face to face encounter with the patient.
[2018-07-25] MEDS ORDERED: NS 500 ML IV ONE (07:56)
[2018-07-25] MEDS ORDERED: TYLENOL PO ONE (07:57)
[2018-07-25 08:22] LABS: BASO# 0.01 X1000 (0.0-0.2); BASO% 0.1 % (0.0-0.8); EOS# 0.19 X1000 (0.0-0.7); HEMATOCRIT 30.5 % (37.0-47.0); HEMOGLOBIN 9.3 g/dL (12.0-16.0); IMM GRAN# 0.02 X1000 (0.0-0.04); IMM GRAN% 0.2 % (0.0-0.5); LYMPH# 1.24 X1000 (1.2-3.4); LYMPH% 13.3 % (20.5-51.1); MCH 30.7 PG (27-31); MCHC 30.5 g/dL (33-37); MCV 100.7 FL (81-99); MONO% 9.7 % (1.7-9.3); MPV 9.6 FL (7.4-10.4); NEUT# 6.95 X1000 (1.4-6.5); NEUT% 74.7 % (42.2-75.2); PLT 243 X1000 (130-400); RBC 3.03 XMIL (4.2-5.4); RDW 16.1 % (11.5-14.5); WBC 9.31 X1000 (4.8-10.8)
[2018-07-25 08:31] LABS: INR 1.43; PROTIME 18.5 Seconds (11.0-16.0)
[2018-07-25 08:43] LABS: ALB/GLOB RATIO 1.6; ALBUMIN 3.6 g/dL (3.5-5.0); CALCIUM 10.2 mg/dL (8.8-10.2); CREATININE 2.5 mg/dL (0.5-0.9); PHOSPHORUS 4.9 mg/dL (2.7-4.5); POTASSIUM 4.6 mmol/L (3.5-5.1); TOTAL BILIRUBIN 0.48 mg/dL (0.20-1.00); TOTAL PROTEIN 5.9 g/dL (6.3-8.3)
--- NOTE | 2018-07-25 08:56 | Diag Imaging Result Doc PS360 ---
EXAM: CT HEAD/C-SPINE W/O CONTRAST - 07/25/2018 HISTORY: head injury/pain TECHNIQUE: CT head and cervical spine without contrast COMPARISON: 07/23/2018 CT head, 07/22/2018 CT cervical spine FINDINGS: CT head: There are atrophic changes similar to prior. There are chronic ischemic changes similar to prior. There is subcutaneous soft tissue swelling with subcutaneous air/laceration right at the right posterior scalp. There is no evidence of skull fracture. There is no evidence of intracranial hemorrhage, mass effect, or midline shift. There is mild paranasal sinus disease noted. CT cervical spine: There is substantial multilevel degenerative disease similar to prior. There is no acute fracture, subluxation, or precervical soft tissue swelling identified. There are atherosclerotic calcifications noted of the bilateral carotid bulb regions. IMPRESSION: CT head: Atrophic changes and chronic ischemic changes, similar to prior. Subcutaneous soft tissue swelling at right posterior scalp. No evidence of intracranial injury. CT cervical spine: Multilevel degenerative disease, similar to prior. No evidence of acute cervical spine injury. This exam was performed using automated exposure control, adjustment of mA or kV according to patient size, and/or use of iterative reconstruction technique. Electronically signed by Gerson Ivan 07/25/2018 8:53 AM
[2018-07-25 09:14] LABS: URINE SOURCE CLEAN CATCH
[2018-07-25] MEDS ORDERED: LASIX IV ONE (09:16)
[2018-07-25] MEDS ORDERED: NITROGLYCERIN TOP ONE (09:16)
[2018-07-25] MEDS ORDERED: ASPIRIN PO ONE (09:30)
[2018-07-25] MEDS ORDERED: NEOSPORIN OINTMENT PACKET ONE (09:55)
[2018-07-25 10:02] LABS: BILIRUBIN URINE NEGATIVE (NEGATIVE); BLOOD URINE NEGATIVE (NEGATIVE); COLOR YELLOW; GLUCOSE URINE NEGATIVE (NEGATIVE); KETONE URINE NEGATIVE (NEGATIVE); LEUKOCYTES URINE NEGATIVE (NEGATIVE); NITRITE URINE NEGATIVE (NEGATIVE); PH URINE 5.5; PROTEIN URINE NEGATIVE (NEGATIVE); SP GRAVITY URINE 1.014; TURBIDITY URINE CLEAR (CLEAR); UROBILINOGEN URINE NORMAL (NORMAL)
[2018-07-25 11:06] LABS: UR EPITHELIAL CELLS <10 /HPF (<10); URINE BACTERIA NEGATIVE /HPF; URINE RBC <10 /HPF (<10); URINE WBC <10 /HPF (<10); URINE YEAST NONE SEEN
--- NOTE | 2018-07-25 11:30 | Diag Imaging Result Doc PS360 ---
EXAM: CHEST-PORTABLE - 07/25/2018 HISTORY: weakness, fall, recent mi TECHNIQUE: Portable chest COMPARISON: 07/22/2018 FINDINGS: There is stable cardiomegaly. There are sternal wires from previous surgery and transvenous cardiac pacemaker again seen. There is mild atelectasis or scarring at the left lingula similar to prior. The lungs otherwise appear essentially clear of acute changes. There is no substantial pleural effusion or pneumothorax identified. IMPRESSION: Stable exam compared to prior. Electronically signed by Gerson Ivan 07/25/2018 11:27 AM
--- NOTE | 2018-07-25 11:41 | HISTORY AND PHYSICAL ---
PRIMARY CARE PHYSICIAN: Dr. Barb Sauer CHIEF COMPLAINT: Fall with hitting her head. HISTORY OF PRESENT ILLNESS: Ms. Mahogany Cardenas is an 87-year-old female with a medical history of coronary artery disease, who just had been treated for a non- STEMI about 1-1/2 weeks ago at [facility]. Also history with atrial flutter on aspirin therapy, hypothyroidism. She presented every day probably for the last 2 or 3 days to the ER with complaints of weakness and falls. She apparently had a fall while she was using the restroom today, but she states she lost her balance. It was not passing out. She did not lose consciousness, but currently there is no one at the bedside to get confirmation on the events. She had a head and neck CT, and all were negative. What has trended is that her ProBNP has started elevating. She does have an elevated troponin, but it is actually downtrending from a few days ago. She denies having any lower extremity swelling or shortness of breath. Denies any heart failure type symptoms. She did receive 60 mg of IV Lasix in the ER and some nitroglycerin paste along with aspirin. She has no complaints other than the back of her head hurting. She did sustain a laceration that has amber. But other than that, she has no complaints. We will admit to the Medical Floor. We will consult Cardiology for heart failure and monitor her closely. PAST MEDICAL HISTORY: 1. Coronary artery disease with an NSTEMI about 1-1/2 weeks ago. 2. Asthma. 3. GERD. 4. Atrial flutter with aspirin and amiodarone. 5. History of breast cancer. 6. Hypothyroidism. 7. Depression. 8. Hyperlipidemia. 9. Systolic congestive heart failure. 10.CKD stage 3. PAST SURGICAL HISTORY: 1. Permanent pacemaker. 2. Right mastectomy. 3. Right knee replacement. 4. Mitral valve replacement. 5. Cholecystectomy. 6. Left ankle surgery. 7. Coronary artery bypass grafting. SOCIAL HISTORY: Denies tobacco, alcohol or illicit drug use. Uses a walker for ambulation. FAMILY HISTORY: Positive for coronary artery disease in her mother. ALLERGIES: Lortab or hydrocodone. HOME MEDICATIONS: 1. Atorvastatin 10 mg p.o. nightly. 2. Amiodarone 200 mg p.o. daily. 3. Aspirin 81 mg p.o. daily. 4. Calcium carbonate 1200 mg p.o. daily. 5. Coreg 6.25 mg p.o. twice daily. 6. Letrozole 2.5 mg p.o. daily. 7. Ranexa 500 mg p.o. twice daily. 8. Duloxetine HCl 60 mg p.o. daily. 9. Lasix 40 mg p.o. daily. 10.Synthroid 125 mcg p.o. daily. 11.Protonix 40 mg p.o. daily. REVIEW OF SYSTEMS: A 14-point review of systems are complete, and all are negative except for those mentioned in the above HPI. PHYSICAL EXAMINATION: VITAL SIGNS: Temperature is 98.3, heart rate 74, respiratory rate 19, blood pressure 117/49, O2 saturation is 97%. GENERAL: Ms. Mahogany Cardenas is an 87-year-old female. She is in no acute distress. She is able to answer questions appropriately. HEENT: Normocephalic. She has a laceration on the posterior scalp with amber , dry, intact. No hematoma. Facial symmetry is symmetric. Pupils are equal, round and reactive to light. Extraocular movements were intact. Mucous membranes are moist. NECK: Trachea midline. CARDIOVASCULAR: Irregularly irregular rate and rhythm. No rubs or gallops, but she does have a murmur. Trace lower extremity edema. Plus 2 dorsalis and radial pulses. Negative for JVD or carotid bruits. PULMONARY: Clear to auscultation with bilateral breath sounds. No accessory use or work of breathing noted. GASTROINTESTINAL: Soft, nontender and nondistended. Positive bowel sounds x4. EXTREMITIES: Decreased range of motion. Decreased strength, all equal. NEUROLOGICAL: Alert and oriented x3. Follows commands. Sensory is intact. SKIN: Warm, dry and intact except for small head laceration on the back of her scalp with amber intact. No hematoma. Mild oozing of blood but essentially has nearly stopped. DIAGNOSTIC DATA: White blood cells 9000, hemoglobin 9, hematocrit 30, platelet count 243. INR is 1.43. PTT is 35. Sodium is 139, potassium 4.6, BUN is 60, creatinine 2.2, glucose 107, calcium 10.2, phosphorus 4.9, magnesium 2.0, bilirubin is 0.48, AST is 16, ALT is 14. CK is 29. Troponin is 0.791. ProBNP is 27,597. Albumin 3.6. Lactate 1.7. Urinalysis is negative. IMAGING: Chest x-ray with definitely enlarged heart, full report is not available. There is left chest pacemaker lead that appears to be intact. Waiting for report. Head and cervical spine CT with atrophic changes and chronic ischemic changes, subcutaneous soft tissue swelling at the right posterior scalp. No intracranial injury. Cervical spine with multilevel degenerative disease. No evidence of acute cervical spine injury. ASSESSMENT AND PLAN: 1. Fall with a hit to the posterior head and with a posterior scalp laceration, with amber now intact. Wound Care is consulted. Head CT and cervical CT both negative for acute injury. Denies having syncope, just lost her balance. 2. Signs of worsening congestive heart failure. Echocardiogram last one had limited views, and that was in 03/2018. At that time, she had severe congestive heart failure it appears with an ejection fraction of 20% in the setting of global hypokinesis and akinesis of the basal and mid inferior wall. We will repeat an echocardiogram today to reevaluate her heart function. 3. Acute on chronic systolic congestive heart failure. She got a dose of IV Lasix 60 mg. We will consult Cardiology for any further recommendations on Lasix. I will go ahead and continue her oral daily dosing of Lasix and decrease her dose of Coreg from 6.25 down to 3.125 in the setting of acute failure. 4. Chronic atrial flutter. Continue amiodarone and aspirin therapy. 5. Chronic kidney disease stage 3. BUN and creatinine are 60 and 2.5, almost pretty much at baseline, just above it. It looks like she runs anywhere from 1.9 to 2.3. 6. Recent [id number] myocardial infarction about 1-1/2 weeks ago at [facility]. Troponins are actually downtrending. Continue aspirin, statin and beta silvia. 7. Hyperlipidemia. Continue statin. 8. Hypothyroidism. Continue Synthroid. 9. Depression. Continue home medications. 10.Gastroesophageal reflux disease. Continue Protonix. 11.DVT prophylaxis with SCDs. Dictated by NOLBERTO Iglesias for Antoine Ocampo MD Addendum: Patient seen and examined by myself. Agree with NOLBERTO note. It reflects my assessment and plan. Patient is being admitted to hospital for acute congestive heart failure. She had an HI 2 weeks ago. Will repeat an echo, start Lasix and consult Cardiology. Will monitor patient closely. cc: NOLBERTO Iglesias MD MTDD
--- NOTE | 2018-07-25 15:44 | CARDIOLOGY CONSULTATION ---
DATE: 07/25/2018 INDICATION FOR THE EVALUATION: The patient came in with a fall. Concern for congestive heart failure. HISTORY OF PRESENT ILLNESS: Ms Cardenas is an 87-year-old white female with a history of coronary disease normally follows with Dr. Breaux. She has had multiple recent hospitalizations for fall. In addition, she had a presumed GI bleed that was evaluated in June of this year but no bleeding source was found. She had a hematocrit that dropped to around 20. She was transfused at that time. She subsequently had a fall, troponin elevation, was admitted to [facility]. She had no cardiac evaluation done at that time other than a consultation. They deferred any further evaluation secondary to her recent GI bleeding and presumed acute kidney injury. However it appears she has had issues with renal insufficiency and is not far from her baseline. She subsequently presented with a elevated troponin and another fall to the ER, was sent home. Came back again with I believe complaints of a low blood pressure. Ultimately she eventually ended up being admitted for this hospitalization. This hospitalization was prompted due to a fall. She apparently just stood up. She is unsure exactly what happened but next thing she knows she fell backwards and hit her head. She reports she was aware during the entire event. She did not have any syncope. She had no chest pain. PAST MEDICAL HISTORY: 1. Significant for coronary disease. Her last cardiac catheterization was performed in [place]. This was in 2014. She had severe [place] vessel disease but a patent vein graft to the distal right coronary, vein graft to the obtuse marginal was patent. There is a radial graft to a diagonal which is patent and a left internal mammary to the LAD which also was patent. I do not have any nuclear scans recently. She did have an echocardiogram that was performed in March demonstrating an EF of around 20%. There is some question to the severity of her aortic stenosis. She had a mean gradient of 13 on that but again, she only had a ejection fraction of 20%. Her valve area was less than 1 cm sq. 2. Atrial flutter not on anticoagulation secondary to her falls. She is maintained on amiodarone. 3. Asthma. 4. Reflux disease. 5. Breast cancer. 6. Hypothyroidism. 7. Hyperlipidemia. 8. Chronic kidney disease. 9. Pacemaker implantation. 10. History of mitral valve bioprosthetic replacement. The mitral valve was calculated at 2.8 cm2. I do not have a pressure gradient across the mitral valve from her last echocardiogram. SOCIAL HISTORY: She does not currently smoke. No alcohol. REVIEW OF SYSTEMS: A 10 system review of systems is negative except for those things mentioned in HPI. PHYSICAL EXAMINATION: She has been afebrile. Heart rate is 70, most recent blood pressure is 111/44. I cannot clearly determine based on the listing of her vitals whether she has had a set of orthostatics. We have ordered that. General: She is a ill-appearing white female, elderly. No acute distress. HEENT: Oropharynx is moist. She has poor dentition. Eye examination shows pink conjunctivae. White sclerae. Neck: Shows no obvious thyromegaly or thyroid tenderness. Cardiovascular: She sounds to be in a regular rate and rhythm. She does not have any obvious murmurs. She has no S3. She has a somewhat distant heart sounds. She has no lower extremity edema. Chest: Clear bilaterally. She has no increased work of breathing. Abdomen: Soft, nontender, nondistended. She has no obvious organomegaly. Skin: Warm and dry throughout without any rashes. Neurological: She is moving all extremities well. No lateralizing deficits. PERTINENT DATA: Her chest x-ray was unremarkable for any acute finding. She had a head and C- spine CT that demonstrates multilevel degenerative changes in her C-spine. Her head showed no evidence of any acute findings other then a subcutaneous soft tissue swelling in the right posterior scalp consistent with her laceration. Her white count is 9.3, hematocrit is 30, platelet count is 243,000. INR is 1.4. Sodium 139, potassium 4.6, BUN 60, creatinine 2.5, her creatinine seems to run mainly in the low 2s and has been near that at least as far back as March 2018. She had a troponin checked and was elevated at 0.791, on the it was 1.4, on the it was 2.1. As far as I can tell this troponin elevation has not been evaluated with any sort of ischemic testing. Her proBNP is 27,000. ASSESSMENT: Ms. Cardenas is an 87-year-old female who presented with a fall and apparently has had multiple contacts with the medical community recently. PLAN: She has had a GI bleed in the past but it seems like her bleeding has stabilized. There was no obvious source found on her EGD. Her renal insufficiency appears relatively stable to slightly worse compared to the previous studies that we have from March. I am concerned about her aortic valve. It certainly could be severe based on her low EF and dimensionless index, which at times based on the echocardiograms that she has had over the last few months does appear to be in the severe category. In addition, her valve areas would suggest it was severe. This could certainly result in syncope or significant lightheadedness if she has low output resulting from the severe aortic stenosis. I will try to reorder an echocardiogram with full evaluations of the aortic valve to try to determine the severity of this. She has had a troponin elevation and this has not been evaluated here or at [facility] recently with any sort of ischemic testing. At some point she may require some ischemic evaluation but presently we will try to further evaluate the valve. cc: Moncho Mc MD
[2018-07-25] MEDS: RANEXA PO SCH (20:52)
[2018-07-25] MEDS: LIPITOR PO SCH (20:52)
[2018-07-25] MEDS: LASIX IV SCH (20:52)
[2018-07-26] MEDS: SYNTHROID PO SCH (05:59)
[2018-07-26] MEDS: PROTONIX PO SCH (05:59)
[2018-07-26 07:47] LABS: BASO# 0.02 X1000 (0.0-0.2); BASO% 0.3 % (0.0-0.8); EOS% 2.5 % (0.0-10.0); HEMATOCRIT 29.8 % (37.0-47.0); IMM GRAN# 0.02 X1000 (0.0-0.04); IMM GRAN% 0.3 % (0.0-0.5); LYMPH# 1.03 X1000 (1.2-3.4); MCH 30.4 PG (27-31); MCHC 30.2 g/dL (33-37); MCV 100.7 FL (81-99); MONO# 0.98 X1000 (0.11-0.59); MONO% 12.4 % (1.7-9.3); MPV 9.4 FL (7.4-10.4); NEUT# 5.68 X1000 (1.4-6.5); NEUT% 71.5 % (42.2-75.2); PLT 234 X1000 (130-400); RBC 2.96 XMIL (4.2-5.4); RDW 16.1 % (11.5-14.5); WBC 7.93 X1000 (4.8-10.8)
[2018-07-26 07:54] LABS: INR 1.33; PROTIME 17.5 Seconds (11.0-16.0)
[2018-07-26 07:55] LABS: PTT 34.3 Seconds (22.3-41.8)
--- NOTE | 2018-07-26 08:06 | EKG Report ---
Test Performed on : 07/26/2018 07:23:52 AM Test Reason : chest pain Blood Pressure : / mmHG Vent. Rate : 072 BPM Atrial Rate : 070 BPM P-R Int : 192 ms QRS Dur : 172 ms QT Int : 496 ms P-R-T Axes : -50 164 011 degrees QTc Int : 543 ms Atrial-paced rhythm with premature supraventricular complexes. Left bundle branch block Abnormal ECG When compared with ECG of 25-JUL-2018 08:41, (Unconfirmed) premature supraventricular complexes. are now present Confirmed by Lai Hebert MD ([id number]) on 07/26/2018 3:29:19 PM
[2018-07-26 08:09] LABS: ALB/GLOB RATIO 1.4; ALBUMIN 3.3 g/dL (3.5-5.0); CREATININE 2.2 mg/dL (0.5-0.9); MAGNESIUM 1.7 mg/dL (1.5-2.7); POTASSIUM 4.2 mmol/L (3.5-5.1); TOTAL BILIRUBIN 0.42 mg/dL (0.20-1.00); TOTAL PROTEIN 5.7 g/dL (6.3-8.3)
[2018-07-26] MEDS ORDERED: LASIX PO SCH (09:00)
[2018-07-26] MEDS: CORDARONE PO SCH (09:04)
[2018-07-26] MEDS: CYMBALTA PO SCH (09:05)
[2018-07-26] MEDS: COREG PO SCH ×3 (09:05→23:07)
[2018-07-26] MEDS: RANEXA PO SCH ×3 (09:05→23:07)
[2018-07-26] MEDS: ASPIRIN EC PO SCH (09:05)
[2018-07-26] MEDS: CALTRATE 600 PO SCH (09:05)
[2018-07-26] MEDS: LASIX IV SCH ×2 (09:05→22:58)
--- NOTE | 2018-07-26 10:08 | EKG Report ---
Test Performed on : 07/25/2018 08:41:28 AM Test Reason : recent mi, weakness Blood Pressure : / mmHG Vent. Rate : 069 BPM Atrial Rate : 081 BPM P-R Int : 190 ms QRS Dur : 168 ms QT Int : 486 ms P-R-T Axes : 000 161 085 degrees QTc Int : 520 ms Atrial-paced rhythm Right axis deviation Left bundle branch block Abnormal ECG When compared with ECG of 23-JUL-2018 09:26, (Unconfirmed) QRS duration has increased Minimal criteria for Anteroseptal infarct are no longer present Unconfirmed Result
[2018-07-26] MEDS: FEMARA PO SCH (10:29)
--- NOTE | 2018-07-26 13:07 | CARDIOLOGY PROGRESS NOTE ---
DATE: 07/26/2018 SUBJECTIVE: Ms. Cardenas reports essential stability in her symptoms. PHYSICAL EXAMINATION: Vital Signs: She is afebrile, heart rate is 69, blood pressure 107/45. Her intake and output have no intake recorded, but she has 1830 mL out. General: No acute distress. Cardiovascular: She sounds to be in a regular rate and rhythm. I do not hear any obvious murmurs. She has somewhat distant heart sounds. Chest: Sounds relatively clear to auscultation bilaterally. She has no increased work of breathing. Abdomen: Soft, nontender. PERTINENT DATA: Sodium 144, potassium 4.2, BUN is 52, creatinine is 2.2. Magnesium level is 1.7. Her troponin has trended down to 0.479. ASSESSMENT: Ms. Cardenas is an 87-year-old female with a history of aortic stenosis, who has been falling. PLAN: I am having her device evaluated today, and we are waiting on the echo results. We certainly want to pay close attention to the results of the aortic valve evaluation on her echo. I am concerned that she has a severe degree of aortic stenosis, and this may be contributing to her falls. Her device is being evaluated for any arrhythmias that could be contributing to the falls. She certainly does have some renal insufficiency, but it appears that she has, in the last several months, been frequently with creatinines in the low 2's. I am unsure of the exact baseline that she typically runs. It appears that in early March, she was 1.6, and then at the time of discharge was 2.3. She came into the hospital in June of this year, and was 2.3, and has trended mainly in the low 2's since that time. We certainly need to do some sort of ischemia evaluation to evaluate her troponin elevations. This has not been done here nor in [place]. Again, we will follow up on the echo results and continue with diuresis at this point. cc: Moncho Mc MD
[2018-07-26] MEDS: NEOSPORIN OINTMENT TUBE TOP SCH (13:10)
[2018-07-26] MEDS: HYDROGEN PEROXIDE SOLUTION TOP SCH (14:30)
--- NOTE | 2018-07-26 14:45 | PROGRESS NOTE ---
DATE: 07/26/2018 SUBJECTIVE: The patient reports feeling fine. Denies any chest pain, any shortness of breath. OBJECTIVE: Vital Signs: Temperature 97.6, heart rate 69, respiratory 16, blood pressure 107/45, O2 sat 98% on room air. General: This is a chronically ill-looking 87-year- old female lying in bed in no acute distress. HEENT: Head is normocephalic, atraumatic. The mucous membranes are dry. There is also a laceration on the posterior scalp which is stable, dry and intact. No hematoma noted. Neck: No JVD noted. No carotid bruit. No lymphadenopathy. No thyromegaly. Cardiovascular: Irregularly irregular heart rhythm. No rubs or gallops noted. The patient has a systolic murmur in the aortic area radiating to the neck. No JVD noted. Respiratory: Clear bilaterally to auscultation. No work of breathing or using accessory muscles. Abdomen: Soft, nontender to palpation. Nondistended. Bowel sounds present. No organomegaly. Extremities: No clubbing, cyanosis or edema. Peripheral pulses present in both legs. Neurologic: Patient is alert and oriented x 3. Moves 4 extremities. LABORATORY DATA: White cell count 7.93, hemoglobin 9.0, hematocrit 29.8, platelets 234,000. With normal BMP except creatinine 2.2. Troponin 0.479. ASSESSMENT AND PLAN: 1. Fall with posterior head trauma. The patient has amber placed. Wound Care has been consulted. 2. Acute systolic congestive heart failure. Ejection fraction last known was 20 %. So, at this point we will continue with IV Lasix. 3. Syncope. Cardiology has been consulted. They think that the possibility of aortic stenosis could be playing a role in the pathogenesis of this syncope. Also, echocardiogram has been done, but not reported yet. At this point, we will continue with diuresis. We will continue checking CBC daily. 4. Elevated troponin. 5. Recent non ST-segment elevation myocardial infarction about 1-1/2 week ago at [facility]. Stable, not complaining of any chest pain. Cardiology following. 6. Hyperlipidemia. We will continue with statin. 7. Hypothyroidism. We will continue with Synthroid. 8. Depression. We will continue home medications. 9. Gastroesophageal reflux disease. We will continue with Protonix. 10. Disposition: Depending upon Cardiology recommendations. cc: Antoine Ocampo MD MTDD
[2018-07-26] MEDS: LIPITOR PO SCH ×2 (22:58→23:08)
[2018-07-27] MEDS: PROTONIX PO SCH (06:50)
[2018-07-27] MEDS: SYNTHROID PO SCH (06:50)
[2018-07-27] MEDS: HYDROGEN PEROXIDE SOLUTION TOP SCH ×3 (06:57→23:14)
[2018-07-27] MEDS: NEOSPORIN OINTMENT TUBE TOP SCH ×3 (06:58→23:16)
[2018-07-27 07:55] LABS: HEMATOCRIT 30.6 % (37.0-47.0); HEMOGLOBIN 9.3 g/dL (12.0-16.0); MCH 30.1 PG (27-31); MCHC 30.4 g/dL (33-37); MPV 9.7 FL (7.4-10.4); RBC 3.09 XMIL (4.2-5.4); RDW 15.9 % (11.5-14.5); WBC 6.92 X1000 (4.8-10.8)
[2018-07-27 08:27] LABS: CALCIUM 9.9 mg/dL (8.8-10.2); CREATININE 2.2 mg/dL (0.5-0.9); POTASSIUM 4.2 mmol/L (3.5-5.1)
[2018-07-27] MEDS: CALTRATE 600 PO SCH (08:45)
[2018-07-27] MEDS: CORDARONE PO SCH (08:45)
[2018-07-27] MEDS: LASIX IV SCH ×2 (08:45→23:11)
[2018-07-27] MEDS: FEMARA PO SCH (08:45)
[2018-07-27] MEDS: RANEXA PO SCH ×2 (08:45→23:11)
[2018-07-27] MEDS: ASPIRIN EC PO SCH (08:45)
[2018-07-27] MEDS: COREG PO SCH ×3 (08:45→23:13)
[2018-07-27] MEDS: CYMBALTA PO SCH (08:45)
--- NOTE | 2018-07-27 11:40 | PROGRESS NOTE ---
DATE: 07/27/2018 SUBJECTIVE: The patient is resting comfortably in bed. She states that she is no longer having shortness of breath. She denies having chest pain but states that she did have some chest pressure a few days ago. OBJECTIVE: Vital Signs: Temperature 98 degrees, blood pressure 102/45, heart rate 79, respirations 18, O2 saturations 100% on room air. Urine output 1.6 L. General: This is a chronically ill-appearing elderly female, lying in bed in no acute distress. Heart: S1, S2 normal. Lungs: Equal air entry bilaterally. No crackles. No rales. Abdomen: Positive bowel sounds. Soft, nontender, nondistended. Extremities: No edema, no cyanosis. Neurologic: The patient is alert and oriented x3. LABORATORY DATA: White blood cell count 6.9, hemoglobin 9.3, hematocrit 30, platelets 237,000. Sodium 141, potassium 4.2, chloride 99, CO2 30, BUN 53, creatinine 2.2, glucose 130. ASSESSMENT AND PLAN: 1. Elevated troponin. Management as per the concrete bucket unloader. 2. Coronary artery disease. Aware. 3. History of atrial flutter. Continue on amiodarone. 4. Hypothyroidism. The patient's TSH is still quite low. The patient may need adjustment of her Synthroid dose. Will check a free T4. 5. History of breast cancer. Aware. 6. Chronic kidney disease stage 4. Stable. 7. Acute on chronic systolic congestive heart failure exacerbation. The patient remains on diuretic therapy. She is currently in a negative fluid balance with adequate urine output. Further recommendations to follow from the concrete bucket unloader. 8. Constipation. Will start the patient on MiraLAX. cc: [place] MD
--- NOTE | 2018-07-27 14:16 | NEPHROLOGY CONSULTATION ---
DATE: 07/27/2018 REASON FOR ADMISSION: Fall with hitting her head. REASON FOR CONSULT: Chronic kidney disease stage IIIB. CONSULTING PHYSICIAN: Dr. Santa Cross. HISTORY OF PRESENT ILLNESS: Ms. Cardenas is an 87-year-old white female who is known to our outpatient services for chronic kidney disease stage IIIB. Her baseline creatinine is 1.9 to 2.2 over the past year and a half. The patient has a presentation to the emergency room after having fallen with complaints of weakness. Supposedly, she has presented for 2 to 3 days straight. She had fallen using the restroom on the day of her admission. She had lost her balance. She did not lose consciousness. She had a head CT and CT of the neck, which were all negative for acute disease. Her BNP was slightly elevated. She had an elevated troponin. She denies any chest pain or increased lower extremity swelling. No increased work of breathing. No fever or chills. No exposure to recent flu. The patient was subsequently, on evaluation in the emergency room, given 60 mg of Lasix with nitroglycerin and an aspirin. She has no complaints. The back of her head is hurting. She did sustain a laceration and dorinda were placed. She is currently in the hospital for further evaluation and workup. Cardiology is monitoring. PAST MEDICAL HISTORY: Chronic kidney disease stage IIIB, baseline creatinine 1.9 to 2.3; coronary artery disease with a non-STEMI about 1-1/2 weeks ago; asthma; GERD; atrial flutter with aspirin and amiodarone; history of breast cancer; hypothyroidism; depression; hyperlipidemia; systolic heart failure. PAST SURGICAL HISTORY: She has a permanent pacemaker placement, history of right mastectomy, right knee replacement, mitral valve replacement, cholecystectomy, left ankle surgery, and coronary artery bypass graft. The patient also states that she has had colonoscopy in the past. SOCIAL HISTORY: She uses a walker for ambulation. She states that she lives with her family. Denies tobacco, alcohol, or illicit drug use. FAMILY HISTORY: Positive for coronary artery disease in her mother. Negative for kidney disease. ALLERGIES: Listed as Lortab or hydrocodone. HOME MEDICATIONS: Atorvastatin, amiodarone, aspirin, calcium carbonate, Coreg, letrozole, Ranexa, duloxetine, Lasix, Synthroid, Protonix. REVIEW OF SYSTEMS: Review of systems x10 with pertinent positives listed above in the HPI. VITAL SIGNS: On patient's most recent vital signs, temperature is 98 degrees, blood pressure 102/45, heart rate 79, respirations 18. She is on 2 L nasal cannula. Last recorded saturation is 100%. She presents with 360 mL in. She has had 1650 mL out to Vargas catheter. LABORATORY DATA: On labs this morning, sodium 141, potassium 4.2, chloride 99, CO2 30, BUN 53, creatinine 2.2, glucose 130. Her anion gap is 12. Calcium is 9.9. Previous magnesium 1.7. Albumin is 3.3. Troponin is elevated, last noted at 0.479 yesterday. TSH was 0.19 with a free T4 of 2.06. White count 6.92, hemoglobin 9.3, hematocrit 30.6 with a platelet count of 237,000. Her pro-time is 17.5, INR 1.33, PTT of 34.3. PHYSICAL EXAMINATION: General: This is an 87-year-old elderly female resting quietly in bed. No acute distress. Skin: Warm and dry. HEENT: Normocephalic, atraumatic. Conjunctivae pale pink. She has CORTEZ. Mucous membranes are dry. Neck: Supple. Trachea midline. No evidence of JVD in the upright position. Cardiovascular: Irregular/irregular rate and rhythm. No gallop. She does possibly have a soft systolic murmur. Lungs: Clear to auscultation bilaterally. Equal excursion. She is on room air. Abdomen: Soft, nontender. Positive bowel sounds. Genitourinary: Not inspected. Vagras catheter is in place. Extremities: Trace pretibial edema. Neurological: She is alert and oriented x3. She does have laceration to her left occipital. Dorinda are intact. ASSESSMENT AND PLAN: 1. Chronic kidney disease stage IIIB. The patient remains at her historical creatinine baseline of 2.2. She has had adequate urine output indicated. No indications for further intervention. She remains on normal saline. 2. Fall. The patient has posterior scalp lacerations. [place] are intact, followed by wound nurse. 3. Signs of worsening congestive heart failure. Cardiology has been consulted. Echocardiogram last performed was in March 2018. She was given Lasix in the emergency room. Her last ejection fraction was noted at 20%. 4. Electrolytes and acid-base balance. These are stable. 5. Anemia. This is acceptable. 6. Recent [id number] myocardial infarction, again followed by Cardiology. I would like to thank you for allowing us to follow with this patient. Dictated by NOLBERTO Conti for Ezio Vallejo MD Face to face encounter, data reviewed, discussed with Keri Rosenberg on 07/27/18. I agree with the above assessment and plan of care. cc: NOLBERTO Conti MD [facility]
--- NOTE | 2018-07-27 14:20 | CARDIOLOGY PROGRESS NOTE ---
DATE: 07/27/2018 SUBJECTIVE: Ms. Cardenas reports no issues overnight. She had a device interrogation yesterday. PHYSICAL EXAMINATION: Vital Signs: she is afebrile, heart rate 80, blood pressure 121/52. Her I's and O's seem to be negative although there some poor intake reported. General: No acute distress. Cardiovascular: She is in a regular rate and rhythm. She has no murmurs. No S3. She has no lower extremity edema. Chest: Exam sounds clear bilaterally. No increased work of breathing. Abdomen: Soft, nontender. PERTINENT DATA: White count 6.9, hematocrit 30, platelet count is 237,000. Sodium 141, potassium 4.2, BUN 53, creatinine 2.2, which is stable from yesterday. ASSESSMENT: Ms. Cardenas is an 87-year-old female who presented with falls. PLAN: Her device interrogation yesterday suggested some potential issues with 1 of her leads. They reprogrammed to try to get around this. This could be resulting in potential syncopal episodes. However the patient's falls do not seem to be clearly syncope. She is an extremely poor historian. I am concerned that she had some issues with her aortic valve. Most recent echo suggests them to be in the moderate range. However, it would be beneficial to do a right and left heart catheterization to further evaluate this. She may eventually need a dobutamine study in the future. Her creatinines are certainly an issue. She has had some elevated cardiac enzymes and she needs an ischemia evaluation as well. We are pending nephrology evaluation. Tentative plan for right and left heart catheterization on , if okay with Nephrology. cc: Moncho Mc MD
--- NOTE | 2018-07-27 14:24 | ECHO REPORT ---
ORDER DATE: 07/26/2018 INTERPRETING PHYSICIAN: Gerson Loredo MD ECHOCARDIOGRAPHIC MEASUREMENTS: Interventricular septum 0.9 cm. Left ventricular posterior wall 0.9 cm. Diastolic diameter 5 cm. Left atrium 4.1 cm. Aorta 3.0 cm. SUMMARY OF THE 2-DIMENSIONAL IMAGING: Bioprosthetic valve in the mitral position was stable. The aortic valve leaflets were trileaflet sclerosed. Tricuspid valve was normal. Pulmonic valve was normal. Pacing leads were noted in the right chamber. Left ventricular cavity size. Severely reduced systolic function. Estimated ejection fraction of 20%. There is severe global hypokinesis. Inflow pattern across the mitral bioprosthetic valve revealed an E-velocity of 1.9 with a mean gradient of 4 to 5 mmHg. There was no mitral regurgitation. Bioprosthetic mitral valve was functioning appropriately. There was mild tricuspid regurgitation. Peak velocity across the tricuspid valve was 3 m/sec. Pulmonary artery systolic pressure of 50 mmHg. There is diastolic dysfunction. There is no aortic stenosis, there is aortic sclerosis. There is no pericardial effusion or obvious intracardiac mass or thrombus seen. cc: MD Moncho Street MD
[2018-07-27] MEDS: MIRALAX PO SCH ×2 (19:03→23:10)
[2018-07-27] MEDS: LIPITOR PO SCH (23:10)
[2018-07-27] MEDS: COLACE PO SCH (23:11)
[2018-07-27] MEDS: TYLENOL PO PRN (23:11)
[2018-07-28] MEDS: TYLENOL PO PRN (05:57)
[2018-07-28] MEDS: PROTONIX PO SCH (06:01)
--- NOTE | 2018-07-28 07:12 | Diag Imaging Result Doc PS360 ---
EXAM: CHEST-1 VIEW 07/28/2018 HISTORY: pulmonary edema TECHNIQUE: AP portable at 0546 COMMENT: There is increased opacity in the left lower lobe compared to 07/25/2018. Some of this may be due to less optimal inspiration. IMPRESSION: Atelectasis versus pneumonia left lower lobe. Electronically signed by Emerson Chavez 07/28/2018 7:10 AM
[2018-07-28 07:37] LABS: HEMATOCRIT 29.1 % (37.0-47.0); HEMOGLOBIN 9.1 g/dL (12.0-16.0); MCH 31.4 PG (27-31); MCHC 31.3 g/dL (33-37); MCV 100.3 FL (81-99); MPV 9.6 FL (7.4-10.4); RBC 2.9 XMIL (4.2-5.4); RDW 15.7 % (11.5-14.5); WBC 6.69 X1000 (4.8-10.8)
[2018-07-28 07:54] LABS: CALCIUM 9.5 mg/dL (8.8-10.2); CREATININE 2.1 mg/dL (0.5-0.9); PHOSPHORUS 4.1 mg/dL (2.7-4.5); POTASSIUM 4.1 mmol/L (3.5-5.1)
[2018-07-28] MEDS: NEOSPORIN OINTMENT TUBE TOP SCH ×3 (08:45→20:13)
[2018-07-28] MEDS: MIRALAX PO SCH ×2 (09:14→20:12)
[2018-07-28] MEDS: ASPIRIN EC PO SCH (09:16)
[2018-07-28] MEDS: CALTRATE 600 PO SCH (09:16)
[2018-07-28] MEDS: FEMARA PO SCH (09:16)
[2018-07-28] MEDS: CORDARONE PO SCH (09:16)
[2018-07-28] MEDS: COREG PO SCH ×2 (09:16→20:12)
[2018-07-28] MEDS: RANEXA PO SCH ×2 (09:16→20:12)
[2018-07-28] MEDS: LASIX IV SCH ×2 (09:17→20:12)
[2018-07-28] MEDS: CYMBALTA PO SCH (09:17)
[2018-07-28] MEDS: HYDROGEN PEROXIDE SOLUTION TOP SCH ×2 (09:17→20:13)
[2018-07-28] MEDS: COLACE PO SCH ×2 (09:22→20:12)
--- NOTE | 2018-07-28 13:16 | CARDIOLOGY PROGRESS NOTE ---
DATE: 07/28/2018 SUBJECTIVE: Ms. Cardenas is continuing to be quite sedentary. She is sleeping upon entering the room. She wakes to verbal and physical stimuli. OBJECTIVE: Vital Signs: She is afebrile. Heart rate is in the 70s to 80s. Her blood pressure is 93/54. Most systolics have been in the 100s to 120s. Her I's and O's continue to be negative during this hospitalization but very difficult to measure. General: She is an ill-appearing elderly female in no acute distress. Cardiovascular: She sounds to be in a regular rate and rhythm. She has no obvious murmur. She has no S3. No lower extremity edema. Her chest exam sounds clear bilaterally. She has a very poor inspiratory effort. Her abdomen is soft and nontender. PERTINENT DATA: Her white count is 6.7. Her hematocrit is 29. Her platelet count is 229,000. Her sodium is 143, potassium 4.1, BUN 45, creatinine is 2.1. ProBNP is 24,000. ASSESSMENT: Ms. Cardenas is an 87-year-old female who presented with a fall. PLAN: Device interrogation done yesterday. She had adjustments in her device that could be leading to less falls if they were due to syncope. Again, her episodes are not clearly syncopal in nature as she is a very poor historian. She certainly has some question about her aortic valve. She has a severely reduced ejection fraction and aortic valve area measurements. Dimensionless indices would suggest a possible [id number]-[id number] degree of stenosis. Her kidney function appears to be at baseline with a GFR in the low 20s suggesting CKD stage 4. At this point, the question is whether or not she should proceed with cardiac catheterization. Certainly, the patient is at increased risk given her age, renal function, and recent bleeding issues. I have had an at-length discussion with her son. I will re-discuss with the patient shortly, and we will try to proceed and get a better course of action. She is quite debilitated and sedentary, so if this is an aortic valve issue it will likely not be intervened on due to her lack of mobility. She certainly has had significant troponin elevations lately that have not been definitively evaluated. cc: Moncho Mc MD
--- NOTE | 2018-07-28 14:24 | NEPHROLOGY PROGRESS NOTE ---
DATE: 07/28/2018 TIME SEEN: 0745. SUBJECTIVE: Ms. Cardenas is resting quietly in bed. Head of the bed is elevated. She does have complaints of slight tenderness to her head. Dorinda intact. OBJECTIVE: Vital Signs: Temperature 97.7 degrees, blood pressure 105/57, heart rate 81, respirations are 19. She is on room air. Last recorded saturation 98%. She has had 480 in. She has had 550 out. Labs: Sodium 143, potassium 4.1, chloride 99, CO2 30, BUN 45 , creatinine 2.1, glucose 93. Her anion gap is 14. Her calcium is 9.5, phosphorus 4.1, albumin of 3. The patient's BNP today is 24,683. White count 6.69, hemoglobin 9.1, hematocrit 29.1, with a platelet count of 229,000. PHYSICAL EXAMINATION: General: This is an 87-year-old, elderly female who is in no acute distress, though she appears chronically ill. Skin: Warm and dry. HEENT: Normocephalic, atraumatic. Conjunctivae are pale pink. She has CORTEZ. Mucous membranes are dry. Neck: Supple. Trachea midline. She has positive JVD. Cardiovascular: Irregular rate and rhythm. No gallop appreciated. She does have a soft systolic murmur. Lungs: Clear to auscultation bilaterally. Equal excursion. On room air. Abdomen: Soft, nontender. Positive bowel sounds. Genitourinary: Not inspected. Vargas catheter is in place with adequate urine output documented. Extremities: Have trace pretibial edema. No clubbing or cyanosis. Neurological: She is alert and oriented x3. She moves all extremities well. She does continue with laceration with dorinda intact to her occipital area. ASSESSMENT AND PLAN: 1. Chronic kidney disease stage 3B. Patient remains at her historical baseline creatinine of 1.9 to 2.2. Her BUN is actually improved from yesterday, it is 45. Patient was given Lasix yesterday. She has adequate urine output documented. 2. Atrial fibrillation. This is followed by Cardiology, along with heart failure. 3. Electrolytes, acid-base balance, and anemia. These are all close to her baseline. I would like to thank you for allowing us to follow with this patient. May need C. Will discussed with Dr. Mc. rg Dictated by NOLBERTO Conti for Ezio Vallejo MD Face to face encounter, data reviewed, discussed with Keri Rosenberg on 07/28/18. I agree with the above assessment and plan of care. cc: NOLBERTO Conti MD [facility]
--- NOTE | 2018-07-28 16:53 | PROGRESS NOTE ---
DATE: 07/28/2018 SUBJECTIVE: The patient is sitting up in the chair. She has no complaints at this time. No acute events noted overnight. OBJECTIVE: Vital Signs: Temperature 97.9 degrees, blood pressure 115/49, heart rate 94, respirations 17, O2 saturation 98% on room air. General: This is an elderly female sitting up in a chair in no acute distress. Heart: S1, S2 normal. Regular rate and rhythm. Lungs: Equal air entry bilaterally. No wheezing. No rales. Abdomen: Positive bowel sounds. Soft, nontender, nondistended. Extremities: No edema, no cyanosis. Neurologic: The patient is alert and oriented. She is able to move all 4 extremities. LABORATORY DATA: White blood cell count 6.6, hemoglobin 9.1, hematocrit 29, platelets 229,000. Sodium 143, potassium 4.1, chloride 99, CO2 is 30, BUN 45, creatinine 2.1, glucose 93. DIAGNOSTIC DATA: Chest x-ray shows atelectasis versus left lower lobe pneumonia. ASSESSMENT AND PLAN: 1. Elevated troponin. Cardiology is planning a possible left heart catheterization. We will await further recommendations. 2. Aortic stenosis. Aware. Cardiology is following. 3. Chronic kidney disease stage 4. Stable. Nephrology is following. 4. History of atrial flutter. Continue on amiodarone. 5. Hyperthyroidism. The patient was on Synthroid prior to admission; however, her free T4 is elevated and her TSH is low. The Synthroid has been discontinued at this time. We will monitor the patient closely. The patient will need to be seen either by her primary care physician or an manager oracle database upon discharge. 6. History of breast cancer. Aware. 7. Acute on chronic systolic congestive heart failure exacerbation. Improved. Further medication titration as per the mold insert changer. 8. Constipation. Continue with scheduled laxative therapy. 9. Coronary artery disease. Aware. cc: Santa Cross MD MTDD
[2018-07-28] MEDS: LIPITOR PO SCH (20:12)
[2018-07-29] MEDS: PROTONIX PO SCH (06:28)
[2018-07-29 08:21] LABS: HEMATOCRIT 32.2 % (37.0-47.0); MCH 31.5 PG (27-31); MCHC 31.1 g/dL (33-37); MCV 101.6 FL (81-99); MPV 9.7 FL (7.4-10.4); RBC 3.17 XMIL (4.2-5.4); RDW 15.9 % (11.5-14.5); WBC 6.69 X1000 (4.8-10.8)
[2018-07-29 08:29] LABS: ALBUMIN 3.1 g/dL (3.5-5.0); CALCIUM 10.1 mg/dL (8.8-10.2); CREATININE 2.2 mg/dL (0.5-0.9); PHOSPHORUS 3.9 mg/dL (2.7-4.5); POTASSIUM 4.1 mmol/L (3.5-5.1)
[2018-07-29] MEDS: LASIX IV SCH (09:10)
[2018-07-29] MEDS: CALTRATE 600 PO SCH (09:10)
[2018-07-29] MEDS: COLACE PO SCH ×2 (09:11→20:29)
[2018-07-29] MEDS: ASPIRIN EC PO SCH (09:11)
[2018-07-29] MEDS: FEMARA PO SCH (09:11)
[2018-07-29] MEDS: CORDARONE PO SCH (09:11)
[2018-07-29] MEDS: CYMBALTA PO SCH (09:11)
[2018-07-29] MEDS: RANEXA PO SCH ×2 (09:11→20:29)
[2018-07-29] MEDS: COREG PO SCH ×2 (09:11→20:29)
[2018-07-29] MEDS: HYDROGEN PEROXIDE SOLUTION TOP SCH ×2 (09:15→20:29)
[2018-07-29] MEDS: NEOSPORIN OINTMENT TUBE TOP SCH ×2 (09:15→20:29)
[2018-07-29] MEDS: MIRALAX PO SCH ×2 (09:15→20:29)
[2018-07-29] MEDS: ULTRAM PO PRN ×2 (12:17→21:17)
--- NOTE | 2018-07-29 14:26 | PROGRESS NOTE ---
DATE: 07/29/2018 SUBJECTIVE: The patient is sitting up in the chair. She complains of pain in her left foot. OBJECTIVE: Vital Signs: Temperature 98, blood pressure 115/33, heart rate 80, respirations 18, O2 saturation 97% on room air. General: She is a chronically ill-appearing elderly female sitting in the chair in no acute distress. Heart: S1 and S2 normal. Lungs: Equal air entry bilaterally. No wheeze, no rales, no rhonchi. Abdomen: Positive bowel sounds. Soft, nontender, nondistended. Extremities: No edema, no cyanosis. Neurologic: The patient is alert and oriented. LABORATORY DATA: White blood cell count 6.6, hemoglobin 10, hematocrit 32, platelets 237. Sodium 138, potassium 4.1, chloride 94, CO2 38, BUN 43, creatinine 2.2, glucose 84, albumin 3.1. ASSESSMENT AND PLAN: 1. Elevated troponin. Aware. The patient is chest pain free. Continue on the current cardiac medications. 2. Aortic stenosis, aware. Further recommendations to follow from Cardiology. 3. Chronic kidney disease stage 4. Stable. 4. History of atrial flutter. The patient is on amiodarone. 5. History of breast cancer. Aware. 6. Hypothyroidism. Continue to hold Synthroid at this time. 7. Constipation. Continue with laxative therapy. 8. Coronary artery disease, aware. 9. Chronic systolic congestive heart failure. Improved. cc: Santa Cross MD MTDD
--- NOTE | 2018-07-29 14:56 | NEPHROLOGY PROGRESS NOTE ---
DATE: 07/29/2018 TIME SEEN: 0655. SUBJECTIVE: Ms. Cardenas is resting quietly in bed. No acute distress. Skin is warm and dry. She does complain of some discomfort to her occiput where she has amber intact. OBJECTIVE: LABS: Sodium 138, potassium 4.1, chloride 94, CO2 38, BUN 43, creatinine 2.2, glucose 84. Her anion gap is 6, calcium 10.1, phosphorus 3.9, albumin 3.1. White count 6.69, hemoglobin 10, hematocrit 32.2 with a platelet count of 237,000. PHYSICAL EXAMINATION: Vital signs: Her most recent vital signs, last temperature 98 degrees, blood pressure 109/53, heart rate 80, respirations are 14, she is on room air. Last recorded saturation is 96%. She has had 480 in, 1850 out to Vargas catheter. General: This is an 87-year- old white female resting quietly in bed. Head of the bed is elevated. She appears in no acute distress. Skin: Warm and dry. HEENT: Normocephalic, atraumatic. Conjunctiva is pale. She has CORTEZ. Mucous membranes dry. Neck: Supple. Trachea midline. No JVD. Cardiovascular: She is regular rate and rhythm. She has a soft systolic murmur. Lungs: Clear to auscultation bilaterally. Equal excursion on room air. Abdomen: Soft, nontender. Positive bowel sounds. Genitourinary: Not inspected. Patient has adequate urine out. Extremities: No edema. No clubbing or cyanosis. Neurological: She is alert and oriented x3. ASSESSMENT AND PLAN: 1. Chronic kidney disease stage 3B. The patient remains at her historical baseline of 1.9 with a stable creatinine during her hospitalization of 2.1 to 2.2. Adequate urine out is documented. No indications for dialysis intervention. 2. Electrolytes and acid-base balance. These are stable. 3. Anemia. This is acceptable. 4. Recent fall, possibly associated with congestive heart failure. This is followed by Cardiology and it has been decided to treat patient conservatively. We are in agreement with this plan. I would like to thank you for allowing us to follow with this patient. Dictated by NOLBERTO Conti for Ezio Vallejo MD Face to face encounter, data reviewed, discussed with Keri Rosenberg on 07/29/18. I agree with the above assessment and plan of care. cc: NOLBERTO Conti MD [facility]
[2018-07-29] MEDS ORDERED: APRESOLINE PO SCH (17:00)
--- NOTE | 2018-07-29 17:48 | CARDIOLOGY PROGRESS NOTE ---
DATE: 07/29/2018 SUBJECTIVE: Mr. Cardenas continues to be relatively inactive. She has no complaints today. No pain complaints. OBJECTIVE: Vital signs: She is afebrile. Heart rate 81. Her blood pressure is 102/49. Most systolics have been in the 100s to 110s. Her I's and O's continue to be negative. She has a total negative of 4.7 L with some difficult data. General: She is in no acute distress. Cardiovascular: She sounds to be in a regular rate and rhythm. She has a 2/6 systolic murmur at the right upper sternal border. She has no lower extremity edema. She has warm and well perfused lower extremities. Chest: Clear bilaterally. No increased work of breathing. Abdomen: Soft, nontender. PERTINENT DATA: White count 6.7, hematocrit 32, platelet count 237,000. Sodium 138, potassium 4.1, BUN 43, creatinine is 2.2. ASSESSMENT: Ms. Cardenas is an 87-year-old female who presented with a fall, has a significant reduction in LV function. PLAN: Appreciate input from Dr. Vallejo. The palliative care team has been involved. The patient has preferred to go a more palliative approach and would not like to proceed with cardiac catheterization. I believe this is reasonable in this patient considering her multiple comorbidities, as well as relatively frail physical state. She does have a significant degree of CKD. I have added in hydralazine at a dose of 5 mg t.i.d. in an effort to try to get some afterload reduction with her systolic dysfunction. I have changed her over to oral Lasix at a dose of 40 mg b.i.d. She does not have much blood pressure to work with so this may be somewhat challenging, but hopefully we can add in a small dose of ISDN as well. Hopefully, we can pursue discharge of the patient in the near future. Again, attempting to transition towards oral medications. cc: Moncho Mc MD
[2018-07-29] MEDS: APRESOLINE PO SCH ×2 (18:48→20:29)
[2018-07-29] MEDS: LASIX PO SCH (20:29)
[2018-07-29] MEDS: LIPITOR PO SCH (20:29)
[2018-07-30] MEDS: PROTONIX PO SCH (06:08)
[2018-07-30 07:49] LABS: ALBUMIN 3.3 g/dL (3.5-5.0); CALCIUM 9.7 mg/dL (8.8-10.2); CREATININE 2.2 mg/dL (0.5-0.9); PHOSPHORUS 3.9 mg/dL (2.7-4.5); POTASSIUM 4.4 mmol/L (3.5-5.1)
[2018-07-30 07:53] LABS: HEMATOCRIT 29.5 % (37.0-47.0); HEMOGLOBIN 9.2 g/dL (12.0-16.0); MCH 31.2 PG (27-31); MCHC 31.2 g/dL (33-37); MPV 9.5 FL (7.4-10.4); RBC 2.95 XMIL (4.2-5.4); RDW 15.7 % (11.5-14.5); WBC 8.27 X1000 (4.8-10.8)
[2018-07-30] MEDS: APRESOLINE PO SCH ×3 (09:04→21:43)
[2018-07-30] MEDS: ASPIRIN EC PO SCH (09:04)
[2018-07-30] MEDS: CALTRATE 600 PO SCH (09:04)
[2018-07-30] MEDS: LASIX PO SCH ×2 (09:04→21:43)
[2018-07-30] MEDS: FEMARA PO SCH (09:04)
[2018-07-30] MEDS: COLACE PO SCH ×2 (09:04→21:43)
[2018-07-30] MEDS: RANEXA PO SCH ×2 (09:04→21:43)
[2018-07-30] MEDS: COREG PO SCH ×2 (09:04→21:44)
[2018-07-30] MEDS: CORDARONE PO SCH (09:05)
[2018-07-30] MEDS: HYDROGEN PEROXIDE SOLUTION TOP SCH ×2 (09:05→21:46)
[2018-07-30] MEDS: MIRALAX PO SCH ×2 (09:05→21:44)
[2018-07-30] MEDS: CYMBALTA PO SCH (09:05)
[2018-07-30] MEDS: NEOSPORIN OINTMENT TUBE TOP SCH ×2 (09:06→21:46)
[2018-07-30] MEDS: ULTRAM PO PRN ×3 (09:08→21:44)
--- NOTE | 2018-07-30 12:50 | NEPHROLOGY PROGRESS NOTE ---
DATE: 07/30/2018 SUBJECTIVE: Ms. Cardenas is lying in bed without complaints. She is hoping for discharge today. OBJECTIVE: Vital Signs: Blood pressure 108/56, heart rate 79, respiration 18, afebrile. General: No acute distress. Skin: Warm and dry, with ecchymoses. HEENT: Conjunctivae are pink. Pupils are equal. Neck: Neck veins are not distended. Heart: Regular. No gallops. Lungs: Equal. No crackles. Abdomen: Soft, nontender. Bowel sounds present. Extremities: With trace edema. No clubbing or cyanosis. IMPRESSION: Chronic kidney disease, stage 4. Her baseline creatinine is approximately 2. She appears euvolemic on exam or perhaps mildly hypovolemic. Overall, no changes are required. Okay for discharge from my perspective. cc: Ezio Vallejo MD
[2018-07-30] MEDS: ZOFRAN IV PRN (13:10)
--- NOTE | 2018-07-30 18:12 | PROGRESS NOTE ---
DATE: 07/30/2018 SUBJECTIVE: The patient is resting comfortably in bed. She complains of pain in her left foot, mainly her great toe. OBJECTIVE: Vital Signs: Temperature 97.4, blood pressure 110/45, heart rate 79, respirations 18, O2 sats 92% on room air. General: This is a chronically ill-appearing elderly female lying in bed in no acute distress. Heart: S1, S2 normal. Regular rate and rhythm. Lungs: Equal air entry bilaterally. No crackles. No rales. Abdomen: Positive bowel sounds. Soft, nontender, nondistended. Extremities: No edema. The left great toe is erythematous and tender to touch. Neurologic: The patient is alert and oriented x 3. LABS: White blood cell count 8.2, hemoglobin 9.2, hematocrit 29, platelets 229,000. Sodium 141, potassium 4.4, chloride 96, CO2 34, BUN 43, creatinine 2.2, glucose 96. ASSESSMENT AND PLAN: 1. Elevated troponin. Aware. Continue on the current cardiac medications. 2. Aortic stenosis. Aware. 3. Chronic kidney disease stage 4. Stable. 4. History of atrial flutter. Continue on amiodarone. 5. Chronic systolic CHF. Improved. 6. Hyperthyroidism. The patient's Synthroid is on hold. 7. Coronary artery disease. Aware. 8. Disposition. The patient will need inpatient rehab placement. Flight Nurse is working on placement at this time. In the meantime, we will consult Physical Therapy. cc: Santa Cross MD
--- NOTE | 2018-07-30 21:20 | CARDIOLOGY PROGRESS NOTE ---
DATE: 07/30/2018 SUBJECTIVE: Ms. Cardenas has no complaints today. She is minimally active. She continues to be quite sedentary and is asleep most of the time on presentation to the room. PHYSICAL: Vital Signs: She is afebrile. Her heart rate is 79, blood pressure 110/45. Her systolics have been in the 110s to 120s predominantly. General: She is in no acute distress. Cardiovascular: She sounds to be in a regular rate and rhythm. She has a soft 2/6 systolic murmur at the right upper sternal border with no lower extremity edema. Warm and well perfused extremities. Chest exam: Sounds relatively clear. I do not hear any obvious rales. She has no increased work of breathing. Abdomen: Soft, nontender. PERTINENT DATA: Her white count is 8.2 with hematocrit 29.5, platelet count of 229. Her sodium is 141, potassium is 4.4, BUN 43, creatinine 2.2 which is stable over the last several days. ASSESSMENT: Ms. Cardenas is an 87-year-old female with systolic heart failure. She has a history of coronary artery disease. PLAN: Patient has decided to pursue a medical/palliative type approach. She has had troponin elevations which she has deferred any sort of further ischemic workup. In addition, there is a question about severity of aortic valve disease. She has deferred further evaluation of that as well. We will continue to titrate medications. She is on oral Lasix, Coreg. I initiated hydralazine yesterday at a very low dose and I am adding in ISDN at a very low dose today as well. If she remains stable on this regimen tomorrow, I believe she would be reasonable to attempt to discharge. cc: Moncho Mc MD
[2018-07-30] MEDS: ISORDIL PO SCH (21:43)
[2018-07-30] MEDS: LIPITOR PO SCH (21:44)
[2018-07-31] MEDS: PROTONIX PO SCH (06:04)
[2018-07-31 07:39] LABS: RDW 15.7 % (11.5-14.5)
[2018-07-31 08:06] LABS: HEMATOCRIT 31.6 % (37.0-47.0); HEMOGLOBIN 9.8 g/dL (12.0-16.0); MCH 31.1 PG (27-31); MCV 100.3 FL (81-99); MPV 9.7 FL (7.4-10.4); RBC 3.15 XMIL (4.2-5.4); WBC 7.09 X1000 (4.8-10.8)
[2018-07-31 08:10] LABS: CALCIUM 9.7 mg/dL (8.8-10.2); CREATININE 2.3 mg/dL (0.5-0.9); POTASSIUM 4.5 mmol/L (3.5-5.1)
[2018-07-31] MEDS: COREG PO SCH ×4 (08:59→20:27)
[2018-07-31] MEDS: COLACE PO SCH ×4 (08:59→20:27)
[2018-07-31] MEDS: ISORDIL PO SCH ×5 (08:59→20:28)
[2018-07-31] MEDS: CYMBALTA PO SCH ×2 (08:59→10:00)
[2018-07-31] MEDS: FEMARA PO SCH ×2 (08:59→10:00)
[2018-07-31] MEDS: CALTRATE 600 PO SCH ×2 (08:59→10:00)
[2018-07-31] MEDS: RANEXA PO SCH ×4 (08:59→20:26)
[2018-07-31] MEDS: LASIX PO SCH ×4 (08:59→20:26)
[2018-07-31] MEDS: MIRALAX PO SCH ×4 (08:59→20:29)
[2018-07-31] MEDS: CORDARONE PO SCH ×2 (08:59→10:00)
[2018-07-31] MEDS: ASPIRIN EC PO SCH ×2 (09:00→10:00)
[2018-07-31] MEDS: APRESOLINE PO SCH ×5 (09:00→20:27)
[2018-07-31] MEDS: NEOSPORIN OINTMENT TUBE TOP SCH ×3 (09:01→20:29)
[2018-07-31] MEDS: HYDROGEN PEROXIDE SOLUTION TOP SCH ×3 (09:01→20:27)
[2018-07-31] MEDS: ZOFRAN IV PRN ×2 (09:04→16:51)
--- NOTE | 2018-07-31 14:57 | Diag Imaging Result Doc PS360 ---
EXAM: FLAT/UPRIGHT ABD/1 VIEW CHEST HISTORY: dyspnea/constipation TECHNIQUE: Flat and upright with chest, three views COMPARISON: Chest compared to 2018 FINDINGS: The lungs are well expanded. The heart is enlarged. There are sternal wires and surgical clips as well as a left-sided pacemaker. No pulmonary edema. No pneumonia. No free air beneath the diaphragm. The gallbladder has been removed. No bowel obstruction. A small amount stool is found throughout the colon. No organomegaly. Prominent atherosclerosis. Mild scoliosis with degenerative spine changes. IMPRESSION: 1.Cardiomegaly 2.There is only mild constipation. Electronically signed by Franki Mai 07/31/2018 2:54 PM
--- NOTE | 2018-07-31 15:01 | PROGRESS NOTE ---
DATE: 07/31/2018 SUBJECTIVE: The patient complains of nausea and vomiting this morning. She was unable to eat her breakfast or take her morning medications. OBJECTIVE: Vital Signs: Temperature 98.7 degrees, blood pressure 93/69, heart rate 81, respirations 20, O2 saturation 93% on room air. General: This is an elderly female lying in bed in no acute distress. Heart: S1, S2 normal. Regular rate and rhythm. Lungs: Clear to auscultation bilaterally. Abdomen: Positive bowel sounds. Soft, nontender, nondistended. Extremities: No edema, no cyanosis. Neurologic: The patient is alert and oriented x3. LABS: Sodium 140, potassium 4.5, chloride 95, CO2 31, BUN 43, creatinine 2.3, glucose 83. Hemoglobin 9.8, hematocrit 31, platelets 237,000. ASSESSMENT AND PLAN: 1. Nausea with vomiting. The patient may likely be constipated. We will order an abdominal x-ray. Will also continue with laxatives. 2. Elevated troponin. Aware. 3. Aortic stenosis. Aware. 4. Chronic systolic congestive heart failure. Improved. Continue with the current management as directed by the wharf worker. 5. Hypothyroidism. The patient's Synthroid is currently on hold. 6. Coronary artery disease. Aware. 7. History of atrial flutter. Continue amiodarone.\ 8. CKD stage 4. Stable. 9. Disposition. Photogeologist is working on rehab placement for the patient. cc: Santa Cross MD MTDD
[2018-07-31] MEDS ORDERED: PHENERGAN IV PRN (18:07)
[2018-07-31] MEDS ORDERED: SODIUM CHLORIDE 0.9% INJ PRN (18:07)
--- NOTE | 2018-07-31 19:31 | Diag Imaging Result Doc PS360 ---
EXAM: CT ABDOMEN/PELVIS W/O CONTRAST HISTORY: persistent nausea/vomiting; abd pain TECHNIQUE: CT abdomen and pelvis without contrast COMPARISON: None. FINDINGS: The heart is enlarged. There are tiny pleural effusions. Moderate sized hiatal hernia. The gallbladder has been removed. No focal hepatic abnormality identified on this noncontrasted exam. Normal spleen, pancreas, and adrenal glands. No renal stones. No hydronephrosis. Severe atherosclerosis. No aortic aneurysm. No bowel obstruction. There is stool throughout the colon. The scattered colonic diverticula. There is a Vargas catheter in the urinary bladder. The uterus is small. There is a 3.0 cm right ovarian cyst. There is a 5.1 cm fluid-filled cystic structure in the right inguinal region. Mild scoliosis with degenerative spine changes. IMPRESSION: 1.Cardiomegaly with tiny pleural effusions 2.Moderate sized hiatal hernia 3.Cholecystectomy 4.Severe atherosclerosis 5.Diverticulosis 6.Constipation 7.Large right inguinal cyst. It is difficult to tell if this arises or is separate from the vasculature. 8.3.0 cm right ovarian cyst This exam was performed using automated exposure control, adjustment of mA or kV according to patient size, and/or use of iterative reconstruction technique. Electronically signed by Franki Mai 07/31/2018 7:29 PM
[2018-07-31] MEDS: LIPITOR PO SCH (20:15)
[2018-07-31] MEDS ORDERED: DULCOLAX PR SCH (21:00)
[2018-08-01] MEDS: PROTONIX PO SCH (06:12)
[2018-08-01 07:47] LABS: HEMATOCRIT 32.7 % (37.0-47.0); HEMOGLOBIN 10.1 g/dL (12.0-16.0); MCH 30.8 PG (27-31); MCHC 30.9 g/dL (33-37); MCV 99.7 FL (81-99); MPV 9.7 FL (7.4-10.4); RBC 3.28 XMIL (4.2-5.4); RDW 15.6 % (11.5-14.5); WBC 8.61 X1000 (4.8-10.8)
[2018-08-01 08:19] LABS: CALCIUM 9.7 mg/dL (8.8-10.2); CREATININE 2.2 mg/dL (0.5-0.9); POTASSIUM 4.2 mmol/L (3.5-5.1)
[2018-08-01] MEDS: ULTRAM PO PRN (09:43)
[2018-08-01] MEDS: CORDARONE PO SCH (09:45)
[2018-08-01] MEDS: RANEXA PO SCH ×2 (09:45→20:21)
[2018-08-01] MEDS: FEMARA PO SCH (09:46)
[2018-08-01] MEDS: CALTRATE 600 PO SCH (09:46)
[2018-08-01] MEDS: LASIX PO SCH ×2 (09:46→20:21)
[2018-08-01] MEDS: ASPIRIN EC PO SCH (09:46)
[2018-08-01] MEDS: COLACE PO SCH ×2 (09:46→20:21)
[2018-08-01] MEDS: CYMBALTA PO SCH (09:46)
[2018-08-01] MEDS: HYDROGEN PEROXIDE SOLUTION TOP SCH ×2 (09:50→21:22)
[2018-08-01] MEDS: NEOSPORIN OINTMENT TUBE TOP SCH ×2 (09:50→20:22)
[2018-08-01] MEDS: MIRALAX PO SCH ×2 (11:11→20:21)
[2018-08-01] MEDS: ISORDIL PO SCH ×3 (11:11→20:21)
[2018-08-01] MEDS: APRESOLINE PO SCH ×3 (11:11→20:21)
[2018-08-01] MEDS: COREG PO SCH ×2 (11:11→20:21)
[2018-08-01] MEDS: LIPITOR PO SCH (20:21)
--- NOTE | 2018-08-02 04:14 | PROGRESS NOTE ---
DATE: 08/01/2018 SUBJECTIVE: The patient is resting comfortably in bed. She no longer complains of abdominal pain or nausea. She is having regular bowel movements now. OBJECTIVE: Vital Signs: Temperature 98 degrees, blood pressure 94/50, heart rate 80, respirations 18, O2 saturation is 100% on room air. General: This is a chronically ill-appearing elderly female, lying in bed in no acute distress. Heart: S1, S2 normal. Regular rate and rhythm. Lungs: Clear to auscultation bilaterally. Abdomen: Positive bowel sounds. Soft, nontender, nondistended. Extremities: No edema. No cyanosis. No calf tenderness. Neurologic: The patient is awake and alert. She is able to move all 4 extremities. LABORATORY DATA: White blood cell count 8.6, hemoglobin 10, hematocrit 32, platelets 257,000. Sodium 141, potassium 4.2, chloride 95, CO2 of 33, BUN 42, creatinine 2.2, glucose 86. ASSESSMENT AND PLAN: 1. Aortic stenosis. Continue with medical management as directed by the used car sales supervisor. 2. Chronic systolic congestive heart failure. Continue on the current medications. 3. Hyperthyroidism. The patient's Synthroid is on hold. 4. Coronary artery disease. Aware. 5. History of atrial flutter. Continue on amiodarone. 6. Chronic kidney disease, stage 4. Stable. DISPOSITION: Health And Social Care Teacher is working on rehabilitation placement for the patient. Continue with physical therapy. cc: Santa Cross MD MTDD
[2018-08-02] MEDS: PROTONIX PO SCH (06:17)
[2018-08-02 07:42] LABS: CREATININE 2.2 mg/dL (0.5-0.9); POTASSIUM 4.3 mmol/L (3.5-5.1)
[2018-08-02 08:03] LABS: FREE T4 1.28 ng/dL (0.93-1.70); TSH 2.44 uIUmL (0.27-4.20)
[2018-08-02] MEDS: CALTRATE 600 PO SCH (09:57)
[2018-08-02] MEDS: FEMARA PO SCH (09:57)
[2018-08-02] MEDS: MIRALAX PO SCH ×2 (09:57→23:17)
[2018-08-02] MEDS: ASPIRIN EC PO SCH (09:58)
[2018-08-02] MEDS: APRESOLINE PO SCH ×3 (09:58→21:07)
[2018-08-02] MEDS: COLACE PO SCH ×2 (09:58→21:07)
[2018-08-02] MEDS: CYMBALTA PO SCH (09:58)
[2018-08-02] MEDS: CORDARONE PO SCH (09:58)
[2018-08-02] MEDS: ISORDIL PO SCH ×3 (09:59→17:12)
[2018-08-02] MEDS: COREG PO SCH ×2 (09:59→21:07)
[2018-08-02] MEDS: LASIX PO SCH ×2 (09:59→21:07)
[2018-08-02] MEDS: HYDROGEN PEROXIDE SOLUTION TOP SCH ×2 (10:00→23:17)
[2018-08-02] MEDS: NEOSPORIN OINTMENT TUBE TOP SCH ×2 (10:00→23:17)
[2018-08-02] MEDS: RANEXA PO SCH ×2 (10:02→21:07)
--- NOTE | 2018-08-02 20:46 | PROGRESS NOTE ---
DATE: 08/02/2018 SUBJECTIVE: The patient is resting comfortably in bed. No acute events noted overnight. OBJECTIVE: Vital Signs: Temperature 97.7, blood pressure 95/40, heart rate 88 , respirations 15. O2 sats 96% on room air. General: This is an elderly female lying in bed in no acute distress. Heart: S1, S2 normal. Regular rate and rhythm. Lungs: Equal air entry bilaterally. No crackles. No rales. Abdomen: Positive bowel sounds. Soft, nontender, nondistended. Extremities: No edema, no cyanosis. Neurologic: The patient is alert and oriented x 3. LABS: Sodium 135, potassium 4.3, chloride 100, CO2 33, BUN 32, creatinine 2.2, ASSESSMENT AND PLAN: 1. Aortic stenosis. Aware. Continue with medical management. 2. Chronic systolic CHF. Stable. Management as per the local truck driver. 3. Hyperthyroidism. The patient's Synthroid is on hold. 4. Coronary artery disease. Aware. 5. History of atrial flutter. The patient is rate controlled. Continue on amiodarone. 6. Chronic kidney disease stage 4. Stable. 7. Constipation. Continue with laxative therapy. 8. Disposition. Sign Painter Helper is working on inpatient rehab placement for the patient. Continue with physical therapy. cc: Santa Cross MD MTDD
[2018-08-02] MEDS: LIPITOR PO SCH (21:07)
--- NOTE | 2018-08-02 21:28 | NEPHROLOGY PROGRESS NOTE ---
DATE: 08/02/2018 SUBJECTIVE: Patient resting in bed. She is hoping to go home or to rehab. OBJECTIVE: Vital Signs: Temperature 98 degrees, pulse 81, respiratory rate 16 , blood pressure 144/50, intake not measured, output 1 L. General: Elderly female resting in bed awake and alert. No acute distress. HEENT: Normocephalic, atraumatic. CORTEZ. Oral mucosa moist. Neck: Supple without JVD. Cardiovascular: Regular rate and rhythm without murmur or gallop. Pulmonary: Clear bilaterally. Abdomen: Soft, positive bowel sounds. : Not inspected. Extremities: No clubbing, cyanosis or edema. Integumentary: Skin is warm and dry. LAB DATA: Sodium 145, potassium 4.3, CO2 of 33, creatinine 2.2. ASSESSMENT AND PLAN: 1. Chronic kidney disease stage 4. She has remained at her baseline now for approximately a week. From a renal perspective she can be discharged at the discretion of the primary. 2. Nutrition, I did express to the patient the importance of eating. It appears that she simply does not like the food here at the hospital. She states that she would eat if she could have the things that she wanted such as Cream of Wheat and eggs that were of a softer texture. Dictated by NOLBERTO Maloney for Ezio Vallejo MD Face to face encounter, data reviewed, discussed with Asaf Rivera on 08/02/18. I agree with the above assessment and plan of care. ron cc: Ezio Vallejo MD [facility]
[2018-08-03] MEDS: PROTONIX PO SCH (06:05)
[2018-08-03 08:12] LABS: HEMATOCRIT 33.4 % (37.0-47.0); HEMOGLOBIN 10.3 g/dL (12.0-16.0); MCH 30.9 PG (27-31); MCHC 30.8 g/dL (33-37); MCV 100.3 FL (81-99); MPV 9.6 FL (7.4-10.4); RBC 3.33 XMIL (4.2-5.4); RDW 15.5 % (11.5-14.5); WBC 8.33 X1000 (4.8-10.8)
[2018-08-03 08:39] LABS: CALCIUM 10.4 mg/dL (8.8-10.2); CREATININE 2.1 mg/dL (0.5-0.9); POTASSIUM 4.5 mmol/L (3.5-5.1)
[2018-08-03] MEDS: CORDARONE PO SCH (09:00)
[2018-08-03] MEDS: RANEXA PO SCH ×2 (09:00→20:35)
[2018-08-03] MEDS: LASIX PO SCH ×2 (09:00→20:36)
[2018-08-03] MEDS: ISORDIL PO SCH ×3 (09:00→16:52)
[2018-08-03] MEDS: ASPIRIN EC PO SCH (09:01)
[2018-08-03] MEDS: COLACE PO SCH ×2 (09:01→20:35)
[2018-08-03] MEDS: COREG PO SCH ×2 (09:01→20:36)
[2018-08-03] MEDS: APRESOLINE PO SCH ×4 (09:01→20:53)
[2018-08-03] MEDS: MIRALAX PO SCH ×2 (09:02→20:35)
[2018-08-03] MEDS: CYMBALTA PO SCH (09:02)
[2018-08-03] MEDS: CALTRATE 600 PO SCH (09:02)
[2018-08-03] MEDS: NEOSPORIN OINTMENT TUBE TOP SCH ×2 (09:15→21:09)
[2018-08-03] MEDS: FEMARA PO SCH (09:16)
[2018-08-03] MEDS: HYDROGEN PEROXIDE SOLUTION TOP SCH ×2 (09:16→21:08)
--- NOTE | 2018-08-03 17:36 | PROGRESS NOTE ---
DATE: 08/03/2018 SUBJECTIVE: Patient resting in bed. OBJECTIVE: Vital signs as follows: Temperature 97.9 degrees, pulse 79, respirations 18, blood pressure 108/49, oxygen saturation 98%. HEENT: Atraumatic, normocephalic. Cardiovascular S1, S2. Respiratory exam has evidence of good air entry bilaterally. Abdomen is soft, nontender. No masses felt. Extremities: No evidence of significant edema. On the left middle finger at the level of the distal interphalangeal joint, the patient has possibly infected nodules. LABORATORY DATA: WBC is 8.33, hematocrit is 33.4 with a platelet count of 269,000. Sodium is 139, potassium is 4.5, chloride is 95, bicarbonate is 42, creatinine is 2.1. ASSESSMENT AND PLAN: 1. Recent history of head injury. The patient is still somewhat confused. Otherwise stable. 2. Chronic systolic heart failure. We will monitor intake and output as well as daily weights. Use diuretics if needed. 3. Aortic stenosis. Aware. 4. Hypothyroidism. Continue levothyroxine. 5. History of coronary artery disease. Continue the patient on aspirin, beta-silvia and statin. 6. History of atrial flutter. Continue rate-controlling agent as well as amiodarone. 7. Chronic kidney disease. Follow up on renal function. Avoid nephrotoxic agent. 8. Disposition: The patient does have a bed in rehab for possible discharge tomorrow; however, the patient is noted to have a lesion on the left distal interphalangeal joint of the left middle finger. I would like Orthopedics to have this lesion evaluated prior to her discharge to rehab. cc: Tu Arshad MD
--- NOTE | 2018-08-03 17:54 | Diag Imaging Result Doc PS360 ---
EXAM: HAND 2 VIEWS LEFT HISTORY: swelling left middle finger at dip joint TECHNIQUE: Left hand, two views COMPARISON: None. FINDINGS: No fracture. No dislocation. There is soft tissue swelling and joint space narrowing to the distal interphalangeal joint of the third finger. Mild subluxation. There is also narrowing to the distal interphalangeal joint of the index finger and thumb with bone spurring. The bones are osteopenic. Narrowing to the trapezium first metacarpal joint. IMPRESSION: Prominent arthritis. Clinical correlation needed to determine if there could be an infection to the distal third finger. Electronically signed by Franki Mai 08/03/2018 5:51 PM
[2018-08-03] MEDS: LIPITOR PO SCH (20:35)
[2018-08-04] MEDS: PROTONIX PO SCH (06:45)
[2018-08-04] MEDS ORDERED: SYNTHROID PO SCH (07:00)
--- NOTE | 2018-08-04 08:44 | CONSULTATION ---
DATE OF CONSULTATION: 08/03/2018 CLINICAL HISTORY: Patient is a pleasant 87-year-old female who was admitted on 07/25/2018 after a fall, hitting her head. Patient has multiple medical problems including coronary artery disease with NSTEMI approximately a week and a half prior to admission, history asthma, atrial flutter, hyperlipidemia, chronic kidney disease, systolic congestive heart failure. She has undergone evaluation by Cardiology and treatment. Patient was noted have swelling of her left long finger DIP joint. Orthopedic consultation was requested. The patient reports that it has been there approximately 1 year. PAST MEDICAL HISTORY: 1. Coronary artery disease with NSTEMI. 2. Asthma. 3. GERD. 4. Atrial flutter treated with an aspirin and amiodarone. 5. History of breast cancer. 6. Hypothyroidism. 7. Depression. 8. Hyperlipidemia. 9. Systolic congestive heart failure. 10. Chronic kidney disease. PAST SURGICAL HISTORY: 1. Permanent pacemaker. 2. Right mastectomy. 3. Right knee replacement. 4. Mitral valve replacement. 5. Cholecystectomy. 6. Left ankle surgery. 7. Coronary artery bypass grafting. HOME MEDICATIONS: 1. Atorvastatin 10 mg p.o. daily. 2. Amiodarone 200 mg p.o. daily. 3. Aspirin 81 mg p.o. daily. 4. Calcium carbonate 1200 mg p.o. daily. 5. Coreg 6.25 mg p.o. twice a day. 6. Letrozole 2.5 mg p.o. daily. 7. Ranexa 500 mg p.o. twice a day. 8. Duloxetine HCL 60 mg p.o. daily. 9. Lasix 40 mg p.o. daily. 10. Synthroid 125 mcg p.o. daily. 11. Protonix 40 mg p.o. daily. ALLERGIES: Hydrocodone. PHYSICAL EXAMINATION: General: Patient is awake, alert, and cooperative with exam. Extremities: Her left hand, her long finger has significant deformity along the dorsal aspect of her DIP joint. It has diffuse erythema. It is localized at the joint. Appears to be firm in nature. There is no evidence of drainage. There is some white discoloration on the medial and dorsal medial and dorsal lateral aspect of the prominence. She had good capillary refill distally. Has tenderness to palpation. Tenderness to gentle movement of the DIP joint. Good capillary refill distally. Her right index finger has similar prominence along the dorsal aspect of the DIP joint of her index finger. However, not as prominent and there is some erythema at this site. IMAGING: Her x-rays were reviewed and revealed the DIP joint of the left long finger has some evidence of some soft tissue swelling and some significant degenerative changes of the IP joint and some evidence of some calcification dorsally. The remaining of the IP joints have some degenerative change along the thumb IP joint and the DIP joint of the index finger. LABORATORY DATA: WBC 8.33, hemoglobin is 10.3, hematocrit is 33.4, platelets 269,000. Her uric acid is elevated at 13.4. 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 PLAN: At this point, the clinical findings are suspicious for a gouty tophaceous arthritis. There is no active drainage. There is no evidence of streaking. 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 Patient is unsure if she has been diagnosed with this. Do not see it documented. 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 I did discuss treatment options with the patient including the possibility of surgical excision. Patient does not wish to proceed with any surgical management. We will treat her symptomatically and all questions were answered. cc: Mj Cisse MD
[2018-08-04] MEDS: APRESOLINE PO SCH (10:17)
[2018-08-04] MEDS: COLACE PO SCH (10:17)
[2018-08-04] MEDS: FEMARA PO SCH (10:17)
[2018-08-04] MEDS: RANEXA PO SCH (10:18)
[2018-08-04] MEDS: ASPIRIN EC PO SCH (10:18)
[2018-08-04] MEDS: LASIX PO SCH (10:18)
[2018-08-04] MEDS: CYMBALTA PO SCH (10:18)
[2018-08-04] MEDS: CORDARONE PO SCH (10:18)
[2018-08-04] MEDS: COREG PO SCH (10:18)
[2018-08-04] MEDS: ISORDIL PO SCH (10:19)
[2018-08-04] MEDS: CALTRATE 600 PO SCH (10:19)
[2018-08-04] MEDS: MIRALAX PO SCH (10:20)
[2018-08-04] MEDS: HYDROGEN PEROXIDE SOLUTION TOP SCH (10:20)
[2018-08-04] MEDS: NEOSPORIN OINTMENT TUBE TOP SCH (10:20)
[2018-08-04 12:23] VITALS: BP 112/58
--- NOTE | 2018-08-04 14:34 | DISCHARGE SUMMARY ---
ADMISSION DATE: 07/25/2018 DISCHARGE DATE: PRINCIPAL DIAGNOSIS: Head injury following a recent fall. SECONDARY DIAGNOSES: 1. Acute systolic heart failure. 2. Atrial flutter chronic kidney disease. 3. Elevated troponin. 4. Hyperlipidemia. 5. Hypothyroidism. 6. Depression. 7. Gastroesophageal reflux disease. 8. Gout DISCHARGE MEDICATIONS: Include the following: Atorvastatin 10 mg p.o. daily. Femara 2.5 mg p.o. once a day. Phenergan 25 every 6 hours as needed. Colace 100 mg p.o. daily. Coreg 6.25 mg p.o. twice a day. Calcium carbonate 1200 mg p.o. daily. Lasix 40 once a day. Levothyroxine 125 mcg p.o. daily. Duloxetine 60 mg p.o. daily. Pantoprazole 40 mg p.o. daily. Amiodarone to be taken as directed. Ranexa twice a day. Aspirin once a day. CONSULTATIONS DONE DURING THIS HOSPITAL STAY: Dr. Mc, Cardiology. Dr. Vallejo, Nephrology. SPECIAL PROCEDURES DONE DURING THIS HOSPITAL STAY: A 2D echocardiogram on 07/26. Abdomen and pelvis CT, 07/31/2018. HOSPITAL COURSE: Ms. Mahogany Cardenas is an 87-year-old female, who sustained a fall prior to coming to the hospital. She did sustain an injury to the head and had a head CT as well as a CT of the C-spine, which did not show any significant abnormalities. The patient was seen by the Cardiology team because of congestive heart failure. There was concern because of patient's aortic stenosis. At some point, the check pilot thought of doing a heart catheterization; however, this plan was dropped as the patient opted for a much conservative approach to her medical care. (Palliative Care). She was also seen by the Nephrology team because of her renal problems. Just prior to her discharge, she was noted to have in her left middle finger at the level of the DIP joint some swelling there. We did check her uric acid level, and it was found to be raised. We think that she does have a tophaceous lesion in that joint from gout. PHYSICAL EXAMINATION: Vital Signs: During my evaluation today, her vital signs are as follows. Temperature 100.2 degrees, pulse 80, respiratory rate 20, blood pressure 112/58 , oxygen saturation is 92%. HEENT: Atraumatic, normocephalic. Cardiovascular: S1, S2. Respiratory system: Has evidence of good air entry bilaterally. Neurological: No evidence of any focal deficits noted. PLAN: The patient can be discharged to rehabilitation today. FOLLOW-UP: She will need to also follow up with her primary care physician as an outpatient. cc: Tu Arshad MD MTDD
[2018-08-05] MEDS ORDERED: ZYLOPRIM PO SCH (09:00)
== END 2018-08-04 16:15 | DRG 280 ==
LOC: SUPCPDRO → ED 07:32 → SUATTDRO 11:10 → 3N 11:10
PROVIDERS: ATTEND Internal Medicine
CPT/HCPCS: 51702; 70450; 71010; 71045; 72125; 73120; 74022; 74176; 80048; 80053; 80069; 81001; 82550; 83605; 83690; 83735; 83880; 84100; 84439; 84443; 84484; 84550; 85025; 85027; 85610; 85730; 86038; 86039; 87275; 87276; 87804; 93005; 93010; 93306; 94761; 94799; 96361; 96374; 97163; 97530; 99285; A9270; J1940; J2405; J2550; J7040